=== PATIENT | male | born 1975 | race Caucasian/White ===

== ENCOUNTER → 2020-08-24 09:15 | Outpatient (REF) | payer OTHER, SELFPAY | LOC: HO.SL 09:15 | PROVIDERS: PCP Family Medicine; Visit Provider Family Medicine | DX: G47.52 REM sleep behavior disorder (principal) | CPT/HCPCS: 95806 ==

== ENCOUNTER → 2021-01-22 10:31 | Outpatient (BNVA) | payer OTHER, SELFPAY | PROVIDERS: PCP Family Medicine; Visit Provider Internal Medicine ==

== ENCOUNTER 2021-03-26 11:29 | Outpatient (REF) | payer OTHER, SELFPAY ==
[2021-03-26 13:58] LABS: MANUAL DIFF FLAG NO
[2021-03-26 14:13] LABS: Basophils Absolute Auto 0.1 X10*3/uL (0.0-0.2); Eosinophils Absolute Auto 0.3 X10*3/uL (0.0-0.4); Eosinophils Percent Auto 4.5 % (0-4); Hematocrit 42.2 % (42.0-52.0); Hemoglobin 14.9 g/dl (14.0-18.0); Imm Gran Abs Auto 0.03 X10*3/uL (0.00-0.03); Imm Gran Pct Auto 0.4 % (0.0-0.4); Lymphocytes Absolute Auto 2.5 X10*3/uL (1.2-4.9); Lymphocytes Percent Auto 34.8 % (20-40); Mean Corpuscular HGB Conc 35.3 g/dl (31.0-36.0); Mean Corpuscular Hemoglobin 31.7 pg (27.0-33.0); Mean Corpuscular Volume 89.8 fL (80.0-98.0); Mean Platelet Volume 11.2 fL (9.4-12.4); Monocytes Absolute Auto 0.5 X10*3/uL (0.1-1.2); Monocytes Percent Auto 7.1 % (2-11); Neutrophils Absolute Auto 3.7 x10*3/uL (2.0-8.3); Neutrophils Percent Auto 52.2 % (45-73); Platelet Count 326 X10*3/uL (160-400); Red Cell Distribution Width 11.3 % (11.0-16.0); White Blood Count 7.1 X10*3/uL (4.8-10.8)
[2021-03-26 14:21] LABS: Estimated Average Glucose 97 mg/dL
[2021-03-26 14:31] LABS: Alanine Aminotransferase 63 U/L (0-40); Albumin Level 4.3 g/dL (3.5-5.0); Alkaline Phosphatase 70 U/L (39-117); Anion Gap 12 (12-20); Aspartate Amino Transferase 32 U/L (5-37); Bilirubin Total 0.7 mg/dL (0.0-1.0); Blood Urea Nitrogen 12 mg/dL (9-16); Calcium 9.1 mg/dL (8.4-10.2); Carbon Dioxide 25 mmol/L (22-29); Chloride 107 mmol/L (96-108); Cholesterol 169 mg/dL; Estimated Glomerular Filt Rate > 60; Glucose Fasting 87 mg/dL (60-99); HDL Cholesterol 35 mg/dL; LDL Cholesterol Calculated 106 mg/dl; Potassium 4.3 mmol/L (3.3-5.1); Sodium 140 mmol/L (135-145); Total Protein 7.1 g/dL (6.5-8.0); Triglycerides 144 mg/dL
[2021-03-31 17:17] LABS: Testosterone, Free 33.8 pg/mL (35.0-155.0); Testosterone, Total 264 ng/dL (250-1100)
== END 2021-03-26 11:30 | disposition home or self-care (01) ==
LOC: HO.WFDLDS 11:29
PROVIDERS: Absent Provider Hospitalist; Visit Provider Family Medicine
DX: Z00.00 Encounter for general adult medical examination without abnormal findings (principal); R73.01 Impaired fasting glucose; R68.82 Decreased libido
CPT/HCPCS: 36415; 80053; 80061; 83036; 84402; 84403; 85025

== ENCOUNTER → 2021-04-10 09:52 | Outpatient (BNVA) | payer OTHER, SELFPAY | PROVIDERS: PCP Family Medicine; Visit Provider Internal Medicine ==

== ENCOUNTER 2021-07-19 10:52 | Outpatient (REF) | payer OTHER, SELFPAY ==
[2021-07-19 13:42] LABS: Alanine Aminotransferase 83 U/L (0-40); Albumin Level 4.4 g/dL (3.5-5.0); Alkaline Phosphatase 65 U/L (39-117); Aspartate Amino Transferase 42 U/L (5-37); Bilirubin Direct 0.3 mg/dL (0.0-0.5); Cholesterol 175 mg/dL; HDL Cholesterol 39 mg/dL; LDL Cholesterol Calculated 93 mg/dl; Total Protein 7.1 g/dL (6.5-8.0); Triglycerides 216 mg/dL
[2021-07-25 11:56] LABS: Testosterone, Free 29.2 pg/mL (35.0-155.0); Testosterone, Total 191 ng/dL (250-1100)
== END 2021-07-19 10:53 | disposition home or self-care (01) ==
LOC: HO.WFDLDS 10:52
PROVIDERS: Visit Provider Family Medicine
DX: Z00.00 Encounter for general adult medical examination without abnormal findings (principal); R68.82 Decreased libido; R79.89 Other specified abnormal findings of blood chemistry; E78.6 Lipoprotein deficiency; R74.01 Elevation of levels of liver transaminase levels
CPT/HCPCS: 36415; 80061; 80076; 84402; 84403

== ENCOUNTER → 2021-08-16 09:41 | Outpatient (BNVA) | payer OTHER, SELFPAY | PROVIDERS: PCP Family Medicine; Visit Provider Internal Medicine Endocrinology, Diabetes & Metabolism | DX: Z13.89 Encounter for screening for other disorder (principal) ==

== ENCOUNTER 2021-09-24 11:13 | Outpatient (REF) | payer OTHER, SELFPAY ==
[2021-09-24 13:55] LABS: Ferritin 479 ng/mL (20-250); Free T4 (Free Thyroxine) 0.96 ng/dL (0.71-1.85); Thyroid Stimulating Hormone 1.23 uIU/mL (0.32-4.0)
[2021-09-25 07:55] LABS: Follicle Stimulating Hormone 4.5 mIU/mL (1.6-8.0); Lutenizing Hormone 2.5 mIU/mL (1.5-9.3)
[2021-09-28 18:16] LABS: Testosterone, Free 64.2 pg/mL (35.0-155.0); Testosterone, Total 310 ng/dL (250-1100)
== END 2021-09-24 11:14 | disposition home or self-care (01) ==
LOC: HO.10HDL 11:13
PROVIDERS: Visit Provider Internal Medicine Endocrinology, Diabetes & Metabolism
DX: R79.89 Other specified abnormal findings of blood chemistry (principal)
CPT/HCPCS: 36415; 82728; 83001; 83002; 84402; 84403; 84439; 84443

== ENCOUNTER → 2021-09-25 10:35 | Outpatient (BNVA) | payer OTHER, SELFPAY | PROVIDERS: PCP Family Medicine; Visit Provider Internal Medicine | DX: G47.30 Sleep apnea, unspecified (principal); J30.9 Allergic rhinitis, unspecified; E66.01 Morbid (severe) obesity due to excess calories ==

== ENCOUNTER 2021-10-08 10:23 | Outpatient (REF) | payer OTHER, SELFPAY ==
--- NOTE | ~2021-10-08 | US_ITS ---
EXAMINATION: US ABDOMEN LIMITED WITH LIVER ELASTOGRAPHY CLINICAL INFORMATION: Increased liver function tests COMPARISON: None. TECHNIQUE: Real-time imaging of the abdominal viscera. Noninvasive ultrasound liver fibrosis assessment is performed using Chau ElastPQ point quantification shear wave elastography (2D-SWE) with a C5-2 MHz transducer. Multiple elastography samples are obtained. FINDINGS: PANCREAS: The visualized pancreatic head and body are normal in appearance. The remainder of the pancreas is obscured from visualization by the overlying bowel gas. LIVER: The liver is slightly enlarged. The liver contour is normal. Liver echotexture is increased. There are hypoechoic areas adjacent to the gallbladder, characteristic location of focal fatty sparing. No other focal lesion or intrahepatic biliary duct dilatation. The right lobe measures 19 cm in length. The left lobe measures 14 cm in length. Portal flow is normal/hepatopedal Shear wave liver elastography median stiffness is 2 m/s (reference: normal median stiffness is 1.3 m/s or less). IQR/median stiffness to assess sampling precision is 0.09 (reference: good quality data set is IQR/median stiffness of 0.15 or less). GALLBLADDER: Normal. The gallbladder is physiologically distended without evidence of stones, sludge, polyps, wall thickening or pericholecystic fluid. COMMON BILE DUCT: Normal in caliber measuring 0.3 cm in diameter. RIGHT KIDNEY: Normal. No hydronephrosis. No renal calculi or focal parenchymal lesions. The kidney measures 12 cm in maximum dimension. FREE FLUID: None. US/US abdomen barker w elastography IMPRESSION: 1. Impression: Enlarged echogenic liver suggestive of fatty infiltration. Limited visualization of the tail the pancreas. 2. Liver elastography: Adequate liver sampling. Increased liver stiffness suggestive of compensated advanced chronic liver disease but need further test for confirmation. REFERENCE: Society of Radiologists in Ultrasound Liver Stiffness Thresholds (2020): LIVER STIFFNESS THRESHOLDS: *Liver Stiffness equal or less than 1.3 m/s: High probability of being normal. *Liver Stiffness less than 1.7 m/s: In the absence of other known clinical signs, rules out compensated advanced chronic liver disease. *Liver Stiffness 1.7-2.1 m/s: *Liver Stiffness over 2.1 m/s: Rules in compensated advanced chronic liver disease. *Liver Stiffness over 2.4 m/s: Suggestive of clinically significant portal hypertension. QUALITY OF DATA SET: *IQR/Median value equal or less than 0.15 implies a quality data set. *IQR/Median value over 0.15 implies a poor quality data set. SIGNIFICANT CHANGE FROM PRIOR EXAM: Significant change if liver stiffness measurement is 10% or greater from prior exam. OTHER CONSIDERATIONS: The stage of liver fibrosis may be overestimated in the setting of acute hepatitis, liver inflammation, elevated liver function tests, hepatic vascular congestion, obstructive cholestasis, non-fasting state, and infiltrative diseases such as amyloidosis and lymphoma. In some patients with NAFLD, the liver stiffness thresholds for compensated advanced chronic liver disease may be lower. In causes other than viral hepatitis and NAFLD, liver stiffness thresholds are not well established.
== END 2021-10-08 10:24 | disposition home or self-care (01) ==
LOC: HO.US 10:23
PROVIDERS: Visit Provider Family Medicine
DX: R74.8 Abnormal levels of other serum enzymes (principal)
CPT/HCPCS: 76705; 76981

== ENCOUNTER → 2021-10-24 09:02 | Outpatient (BNVA) | payer OTHER, SELFPAY | PROVIDERS: PCP Family Medicine; Visit Provider Dietitian, Registered | DX: E66.01 Morbid (severe) obesity due to excess calories (principal); Z68.42 Body mass index [BMI] 45.0-49.9, adult | CPT/HCPCS: 97802 ==

== ENCOUNTER 2021-11-16 10:30 | Outpatient (REF) | payer OTHER, SELFPAY ==
[2021-11-16 14:01] LABS: Alanine Aminotransferase 72 U/L (0-40); Albumin Level 4.7 g/dL (3.5-5.0); Alkaline Phosphatase 63 U/L (39-117); Anion Gap 14 (12-20); Aspartate Amino Transferase 39 U/L (5-37); Bilirubin Total 0.9 mg/dL (0.0-1.0); Blood Urea Nitrogen 13 mg/dL (9-16); Calcium 9.3 mg/dL (8.4-10.2); Carbon Dioxide 27 mmol/L (22-29); Chloride 104 mmol/L (96-108); Cholesterol 164 mg/dL; Estimated Glomerular Filt Rate > 60; Glucose Fasting 103 mg/dL (60-99); HDL Cholesterol 33 mg/dL; LDL Cholesterol Calculated 93 mg/dl; Potassium 4.8 mmol/L (3.3-5.1); Sodium 140 mmol/L (135-145); Total Protein 7.6 g/dL (6.5-8.0); Triglycerides 193 mg/dL
== END 2021-11-16 10:31 | disposition home or self-care (01) ==
LOC: HO.WFDLDS 10:30
PROVIDERS: Visit Provider Family Medicine
DX: Z00.00 Encounter for general adult medical examination without abnormal findings (principal); E78.1 Pure hyperglyceridemia; R74.8 Abnormal levels of other serum enzymes
CPT/HCPCS: 36415; 80053; 80061

== ENCOUNTER → 2021-12-13 10:07 | Outpatient (BNVA) | payer OTHER, SELFPAY | PROVIDERS: PCP Family Medicine; Visit Provider Dietitian, Registered | DX: E66.01 Morbid (severe) obesity due to excess calories (principal); Z71.3 Dietary counseling and surveillance | CPT/HCPCS: 97803 ==

== ENCOUNTER 2022-01-25 13:31 | Outpatient (REF) | payer OTHER, SELFPAY ==
[2022-01-25 14:34] LABS: Gamma Glutamyl Transpeptidase 47 U/L (11-51)
[2022-01-25 14:54] LABS: Ferritin 271 ng/mL (20-250)
[2022-01-28 04:57] LABS: HBS Num1 2.13 mIU/mL (0-7.99); HBc Num1 0.09 S/CO (0.00-0.79); HBsAGNum1 0.18 S/CO (0.00-0.99); HIV AB/AG Nonreactive (Nonreactive); HIV Num 1 0.15 S/CO (0.00-0.99); Hepatitis B Core Antibody Nonreactive (Nonreactive); Hepatitis B Surface Antigen Negative (Negative); ~HepC Num1 0.15 S/CO (0.00-0.79); ~Hepatitis B Surface Antibody NONREACTIVE (Nonreactive); ~Hepatitis C Antibody Nonreactive (Nonreactive)
[2022-01-28 13:32] LABS: Anti Nuclear Antibody Screen NEGATIVE (NEGATIVE)
[2022-01-28 14:02] LABS: Alpha Fetoprotein 1.7 ng/mL (<6.1)
[2022-01-29 14:57] LABS: Mitochondrial Antibodies NEGATIVE (NEGATIVE)
[2022-01-30 04:38] LABS: Hepatitis A Antibody IgM 0.17 Index (0-0.79); ~Hepatitis A Antibody IgM Nonreactive (Nonreactive)
[2022-01-31 09:46] LABS: Smooth Muscle Antibody <20 U (<20)
== END 2022-01-25 13:32 | disposition home or self-care (01) ==
LOC: HO.LAB 13:31
PROVIDERS: PCP Family Medicine; Visit Provider Nurse Practitioner
DX: Z11.4 Encounter for screening for human immunodeficiency virus [HIV] (principal); R74.8 Abnormal levels of other serum enzymes
CPT/HCPCS: 36415; 82105; 82728; 82977; 86015; 86038; 86039; 86255; 86256; 86704; 86706; 86709; 86803; 87340; 87389

== ENCOUNTER → 2022-02-20 14:11 | Outpatient (BNVA) | payer OTHER, SELFPAY | PROVIDERS: PCP Family Medicine; Visit Provider Dietitian, Registered | DX: E66.01 Morbid (severe) obesity due to excess calories (principal); Z68.41 Body mass index [BMI] 40.0-44.9, adult | CPT/HCPCS: 97803 ==

== ENCOUNTER 2022-03-12 16:22 | Outpatient (REF) | payer OTHER, SELFPAY ==
[2022-03-13 12:46] LABS: Influenza A PCR NEGATIVE (Negative); Influenza B PCR NEGATIVE (Negative); Resp Syncy Virus RNA Qual PCR NEGATIVE (Negative); SARS COV2 PCR INHOUSE NEGATIVE (Negative)
== END 2022-03-12 16:23 | disposition home or self-care (01) ==
LOC: HO.LAB 16:22
PROVIDERS: Visit Provider Family Medicine
DX: Z20.822 Contact with and (suspected) exposure to COVID-19 (principal); R09.89 Other specified symptoms and signs involving the circulatory and respiratory systems
CPT/HCPCS: 0241U

== ENCOUNTER 2022-05-08 11:17 | Outpatient (REF) | payer OTHER, SELFPAY ==
[2022-05-08 14:33] LABS: Alanine Aminotransferase 35 U/L (0-40); Albumin Level 4.5 g/dL (3.5-5.0); Alkaline Phosphatase 60 U/L (39-117); Anion Gap 9 (12-20); Aspartate Amino Transferase 25 U/L (5-37); Blood Urea Nitrogen 21 mg/dL (9-16); Calcium 9.1 mg/dL (8.4-10.2); Carbon Dioxide 27 mmol/L (22-29); Chloride 107 mmol/L (96-108); Estimated Glomerular Filt Rate > 60; Glucose Random 86 mg/dL (60-115); Sodium 139 mmol/L (135-145); Total Protein 7.1 g/dL (6.5-8.0)
== END 2022-05-08 11:18 | disposition home or self-care (01) ==
LOC: HO.WFDLDS 11:17
PROVIDERS: Visit Provider Family Medicine
DX: R74.8 Abnormal levels of other serum enzymes (principal)
CPT/HCPCS: 36415; 80053

== ENCOUNTER → 2022-06-17 14:09 | Outpatient (BNVA) | payer OTHER, SELFPAY | PROVIDERS: PCP Family Medicine; Visit Provider Dietitian, Registered | DX: E66.01 Morbid (severe) obesity due to excess calories (principal); Z68.42 Body mass index [BMI] 45.0-49.9, adult | CPT/HCPCS: 97803 ==

== ENCOUNTER 2022-06-27 12:33 | Outpatient (REF) | payer OTHER, SELFPAY ==
[2022-06-27 15:34] LABS: Estimated Average Glucose 97 mg/dL
[2022-06-27 15:45] LABS: Anion Gap 14 (12-20); Blood Urea Nitrogen 17 mg/dL (9-16); Calcium 9.4 mg/dL (8.4-10.2); Carbon Dioxide 25 mmol/L (22-29); Chloride 106 mmol/L (96-108); Cholesterol 148 mg/dL; Estimated Glomerular Filt Rate > 60; Glucose Fasting 98 mg/dL (60-99); HDL Cholesterol 36 mg/dL; LDL Cholesterol Calculated 93 mg/dl; Potassium 4.6 mmol/L (3.3-5.1); Sodium 140 mmol/L (135-145); Triglycerides 98 mg/dL
[2022-06-27 16:03] LABS: Prostate Specific Antigen Scr 1.76 ng/mL (<0.05-4.0); TSH reflex Free T4 1.28 uIU/mL (0.32-4.0)
== END 2022-06-27 12:34 | disposition home or self-care (01) ==
LOC: HO.WFDLDS 12:33
PROVIDERS: Visit Provider Family Medicine
DX: Z00.00 Encounter for general adult medical examination without abnormal findings (principal); R73.01 Impaired fasting glucose; E78.6 Lipoprotein deficiency; Z12.5 Encounter for screening for malignant neoplasm of prostate
CPT/HCPCS: 36415; 80048; 80061; 83036; 84153; 84443

== ENCOUNTER → 2022-07-11 13:34 | Outpatient (BNVA) | payer OTHER, SELFPAY | PROVIDERS: PCP Family Medicine; Visit Provider Dietitian, Registered | DX: E66.9 Obesity, unspecified (principal) | CPT/HCPCS: 97803 ==

== ENCOUNTER 2022-08-23 11:32 | Outpatient (REF) | payer OTHER, SELFPAY ==
--- NOTE | ~2022-08-23 | US_ITS ---
EXAMINATION: US ABDOMEN LIMITED CLINICAL INFORMATION: Viral infection. HEDRICK (nonalcoholic steatosis). COMPARISON: 10/08/2021. TECHNIQUE: Real-time imaging of the right upper quadrant abdominal viscera. FINDINGS: PANCREAS: Normal. LIVER: The liver is normal in size. The liver contour is normal. There is diffuse increased liver parenchymal echogenicity, consistent with hepatic steatosis. No focal hepatic lesion. There is no intrahepatic biliary duct dilatation seen. GALLBLADDER: Normal. The gallbladder is physiologically distended without evidence of stones, sludge, polyps, wall thickening or pericholecystic fluid. COMMON BILE DUCT: Normal in caliber measuring 0.6 cm in diameter. RIGHT KIDNEY: Normal. No hydronephrosis. No renal calculi or focal parenchymal lesions. The kidney measures 12.0 cm in maximum dimension. FREE FLUID: None. US/US abdomen limited IMPRESSION: Fatty liver.
== END 2022-08-23 11:33 | disposition home or self-care (01) ==
LOC: HO.HMGCX 11:32
PROVIDERS: PCP Family Medicine; Visit Provider Nurse Practitioner
DX: B34.9 Viral infection, unspecified (principal)
CPT/HCPCS: 76705

== ENCOUNTER 2022-09-12 11:31 | Outpatient (REF) | payer OTHER, SELFPAY ==
[2022-09-12 14:06] LABS: Alanine Aminotransferase 24 U/L (0-40); Albumin Level 4.3 g/dL (3.5-5.0); Alkaline Phosphatase 69 U/L (39-117); Anion Gap 12 (12-20); Aspartate Amino Transferase 19 U/L (5-37); Bilirubin Total 1.1 mg/dL (0.0-1.0); Blood Urea Nitrogen 16 mg/dL (9-16); Carbon Dioxide 25 mmol/L (22-29); Chloride 107 mmol/L (96-108); Estimated Glomerular Filt Rate > 60; Glucose Random 92 mg/dL (60-115); Potassium 4.2 mmol/L (3.3-5.1); Sodium 140 mmol/L (135-145); Total Protein 7.1 g/dL (6.5-8.0)
[2022-09-18 06:57] LABS: Alpha Fetoprotein 1.7 ng/mL (<6.1)
== END 2022-09-12 11:32 | disposition home or self-care (01) ==
LOC: HO.HMGCLDS 11:31
PROVIDERS: PCP Family Medicine; Visit Provider Nurse Practitioner
DX: B34.9 Viral infection, unspecified (principal); K75.81 Nonalcoholic steatohepatitis (NASH)
CPT/HCPCS: 36415; 80053; 82105

== ENCOUNTER → 2022-09-24 11:00 | Outpatient (BNVA) | payer OTHER, SELFPAY | PROVIDERS: PCP Family Medicine; Visit Provider Internal Medicine ==

== ENCOUNTER → 2022-10-15 10:37 | Outpatient (BNVA) | payer OTHER, SELFPAY | PROVIDERS: PCP Family Medicine; Visit Provider Nurse Practitioner ==

== ENCOUNTER 2022-11-13 10:00 | Outpatient (RCR) | payer OTHER, SELFPAY ==
--- NOTE | 2022-09-25 12:33 | MHC.PT.EP ---
[facility] [place] Office [place] Office [place] Office [address] Bibiana Calderón [address] [phone] F: [phone] F: [phone] F: [phone] F: [phone] Physical Therapy Plan of Care Date of Evaluation: Date of Surgery: Diagnosis: This is a 47 yo male presenting to skilled PT with a script for L shoulder pain. Assessment: This is a 47 yo male presenting to skilled PT with a script for L shoulder pain. Patient has been having ongoing anterior GHJ shoulder pain now for a few months now (no injury noted). It feels like a guitar string vibration. Pain increases with reaching out to the side, waking up in the AM (stiffness). Some days are better than others. 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 He has been doing weight training and his shoulder feels better with exercise, follows an izzy and does not have an increase in pain. He does about 30 mins 3-4 times a week. Assessment reveals pain that ranges from up to a 5/10 at the worst. Patient demos decreased L shoulder ROM, strength of L scapular muscles and L RTC, s/s with ACJ involvement and TTP at joint line and impaired posture with forward head and rounded shoulders. Based on functional limitations, impaired QOL and pain tolerance patient is a good candidate for skilled PT 2x/wk for 4wks. Frequency and Duration: The patient will be seen 2x/wk for 4wks Short Term Goals: I in HEP in 2 wks Demo proper posture and muscle recruitment with strength training without cues from PT in 2wks Adapt work station appropriately to minimize compensation and impaired posture Senior Care Goals: in 4 wks: Improve pain to no more than 1/10 at the worst Improve SPADI by at least 10 points Improve scapular strength by at least 1 grade Demo equal and nonpainful ROM B Treatment Plan: Modalities to reduce pain, spasms and effusion. Manual therapy to restore motion and function. Therapeutic exercise to improve strength and flexibility. Neuromuscular re-education for posture and balance. Therapeutic activities to return to functional activities of daily living. Electronically signed by: Dai Manzanares PT Please sign and return to therapist. Thank you for your referral.
--- NOTE | 2022-11-21 09:54 | MHC.PT.DC ---
[facility] [place] Office [place] Office [place] Office [address] Calderón [address] [phone] F: [phone] F: [phone] F: [phone] F: [phone] Physical Therapy Discharge Report Diagnosis: This is a 47 yo male presenting to skilled PT with a script for L shoulder pain. Date of Surgery: Date of Evaluation: 09/25/22 Date of Discharge: 11/21/22 Treatments to Date: 7 Cancellations to Date: 0 No Shows to Date: Discharge Status: Achieved Goals Improved Function Independent with HEP Patient Elected to Stop Discharge Summary: Patient had 7 visits of PT, he has improved ROM, strength, posture and pain. He has a good HEP, understands how to manage this pain if it returns and importance of continuation of exercise. DC to HEP Electronically signed by: Dai Manzanares, PT Please sign and return to therapist. Thank you for your referral.
== END 2022-11-21 09:54 | disposition home or self-care (01) ==
LOC: HO.PTCHIC 10:00
PROVIDERS: PCP Family Medicine; Visit Provider Family Medicine
DX: M25.512 Pain in left shoulder (principal)
CPT/HCPCS: 97110; 97140; 97161

== ENCOUNTER 2022-11-20 10:16 | Outpatient (AMB) | payer OTHER, SELFPAY ==
--- NOTE | 2022-11-20 10:19 | MHC.AMNUTRGE ---
Intake VS Expanded 11/20/22 10:20 Height 5 ft 8 in Weight 285 lb 7.978 oz BMI 43.4 Intake Visit Reasons: Follow up Allergies cat dander [CATS] Allergy (Mild, Verified 10/15/22 10:49) SNEEZING, ITCHY EYES SEASONAL ALLERGIES Allergy (Mild, Uncoded 09/24/22 11:24) SNEEZING, RUNNY NOSE HPI Nutrition Presentation Details MNT f/u for morbid obesity Pt reports working on diet modifications, choosing lower fat options. Has a meal replacement most days of the week instead of skipping meals or choosing higher calorie meals. Following healthy plate method Physical activity: anaerobic exercises daily 15m in to 30 min Keeps hydrated by having 11-13 c of fluids per day Most Recent Diabetes Results: Cholesterol 148 mg/dL 06/27/22 HDL Cholesterol 36 mg/dL 06/27/22 Triglycerides 98 mg/dL 06/27/22 Creatinine 0.95 mg/dL (0.5-1.4) 09/12/22 Blood Urea Nitrogen 16 mg/dL (9-16) 09/12/22 Sodium 140 mmol/L (135-145) 09/12/22 Potassium 4.2 mmol/L (3.3-5.1) 09/12/22 Chloride 107 mmol/L (96-108) 09/12/22 Carbon Dioxide 25 mmol/L (22-29) 09/12/22 Calcium 9.0 mg/dL (8.4-10.2) 09/12/22 AST 19 U/L (5-37) 09/12/22 ALT 24 U/L (0-40) 09/12/22 Total Protein 7.1 g/dL (6.5-8.0) 09/12/22 Albumin 4.3 g/dL (3.5-5.0) 09/12/22 [facility] Medical History Allergic rhinitis Morbid obesity Surgical History No pertinent past surgical history Family History Father Cataract Mother Lymphedema Obesity Brother No problems noted. Brother No problems noted. Sister No problems noted. Maternal Grandmother Dementia Social History Housing: House Alcohol intake: current Alcohol intake frequency: a few times a month Patient Tobacco Use Status: Former Tobacco user Quit Date: 2008 e-Cigarette/Vaping Use: Never Used Second Hand Smoke Exposure: No service: No Current occupational status: employed Current occupational exposures/hazards: No Cognitive needs: No Hearing needs: No Vision needs: No Assessment & Plan Assessment & Plan (1) Morbid obesity: Comment: BMI 45.6 (10/2021), 47.2 (11/2021), 44.6 (02/2022), 45.8 (06/17/22), 44.2 (07/11/22), 43.4 (11/20/22) . Code(s): E66.01 - Morbid (severe) obesity due to excess calories Plan: Educate Pt on gradual reduction of calories by 500 -1000 per day from empty calorie foods Goal caloric /day : 4567-0400 ? Pt's set goal (Date: 10/24/21 ): reduce portion of starches in the evening to 1 1/2 cup serving at follow up (Date:12/13/21 ): met 50% at f/u 02/2022 met 100 % 06/17/22 - will resume goal, 11/20/22 meeting goal 100% 07/11/22 met 100%, Used wt : 141 kg, from 10/24/21 , 136 kg 06/17/22 , 132 kg (07/11/22) Est kcal goal: 2759-250 = 2259 (40% carb, 30% fat/prot) Est fluid needs: 3300 ml/d-3960 (25-30 ml/kg bw) Rec fiber: increase to 8-10 g per day and gradually increase to 35 g or as tolerated Rec Na: < 2000 mg /d Educate patient on: (R= Reviewed, V = verbalizes understanding N/R= Needs review N/A= not applicable) Food sources of carbohydrates and serving adequate serving sizes : R V Difference between complex carbohydrates and simple carbohydrates, role of fiber: R V Differences between fats (MUFA/PUFA/saturated fats, trans fats) and food sources of various fats: R , Food sources of sodium and salt and healthy modifications for heart health and kidney health: R, Vitamins and minerals: R V How to interpret food labels: R V Healthy Plate method concept: R V Physical activity: benefits and precaution: R V Patient Instructions: Continue working on reducing intake of saturated fats Continue following healthy plate method Continue physical activity, walking /biking as able goal 30 min to 1 hr 3 times/wk Coding Level of Care Code Nutr Indiv Subseq (01296) Diagnoses Morbid obesity E66.01 Time Spent (min) 20
[2022-11-20 10:20] VITALS: BMI 43.4
== END 2022-11-20 10:44 | disposition home or self-care (01) ==
PROVIDERS: PCP Family Medicine; Visit Provider Dietitian, Registered
DX: E66.01 Morbid (severe) obesity due to excess calories (principal)

== ENCOUNTER → 2022-11-20 10:16 | Outpatient (BNVA) | payer OTHER, SELFPAY | PROVIDERS: PCP Family Medicine; Visit Provider Dietitian, Registered | DX: E66.01 Morbid (severe) obesity due to excess calories (principal); Z68.41 Body mass index [BMI] 40.0-44.9, adult; Z71.3 Dietary counseling and surveillance | CPT/HCPCS: 97803 ==

== ENCOUNTER 2023-02-27 09:17 | Outpatient (REF) | payer OTHER, SELFPAY ==
--- NOTE | ~2023-02-27 | US_ITS ---
EXAMINATION: US ABDOMEN LIMITED WITH LIVER ELASTOGRAPHY CLINICAL INFORMATION: Nonalcoholic steatohepatitis. COMPARISON: None available. TECHNIQUE: Real-time imaging of the abdominal viscera. Noninvasive ultrasound liver fibrosis assessment is performed using Chau ElastPQ point quantification shear wave elastography (2D-SWE) with a C5-2 MHz transducer. Multiple elastography samples are obtained. FINDINGS: PANCREAS: Normal. The visualized pancreatic head and body are normal in appearance. The remainder of the pancreas is obscured from visualization by the overlying bowel gas. LIVER: There is mild hepatomegaly. The liver demonstrates normal contour and generally increased echogenicity, with pericholecystic sparing. No focal lesion or intrahepatic biliary duct dilatation. The right lobe measures 19.0 cm in length. The left lobe measures 11.7 cm in length. Portal flow is towards the liver (hepatopetal). Shear wave liver elastography median stiffness is 1.80 m/s (reference: normal median stiffness is 1.3 m/s or less). IQR/median stiffness to assess sampling precision is 0.17 (reference: good quality data set is IQR/median stiffness of 0.15 or less). GALLBLADDER: Normal. The gallbladder is physiologically distended without evidence of stones, sludge, polyps, wall thickening or pericholecystic fluid. COMMON BILE DUCT: Normal in caliber measuring 0.5 cm in diameter. RIGHT KIDNEY: Normal. No hydronephrosis. No renal calculi or focal parenchymal lesions. The kidney measures 10.6 cm in maximum dimension. FREE FLUID: None. US/US abdomen barker w elastography IMPRESSION: 1. There is generalized increase in hepatic echotexture, consistent with fatty infiltration or hepatocellular disease. Please correlate clinically. Characteristic pericholecystic sparing favors fatty infiltration. No focal hepatic mass or intrahepatic biliary dilatation is seen. 2. Liver elastography: Although measurements are suggestive of compensated advanced chronic liver disease, there is statistical variability of the sampling which decreases accuracy. REFERENCE: Society of Radiologists in Ultrasound Liver Stiffness Thresholds (2020): LIVER STIFFNESS THRESHOLDS: *Liver Stiffness equal or less than 1.3 m/s: High probability of being normal. *Liver Stiffness less than 1.7 m/s: In the absence of other known clinical signs, rules out compensated advanced chronic liver disease. *Liver Stiffness 1.7-2.1 m/s: Suggestive of compensated advanced chronic liver disease but need further test for confirmation. *Liver Stiffness over 2.1 m/s: Rules in compensated advanced chronic liver disease. *Liver Stiffness over 2.4 m/s: Suggestive of clinically significant portal hypertension. QUALITY OF DATA SET: *IQR/Median value equal or less than 0.15 implies a quality data set. *IQR/Median value over 0.15 implies a poor quality data set. SIGNIFICANT CHANGE FROM PRIOR EXAM: Significant change if liver stiffness measurement is 10% or greater from prior exam. OTHER CONSIDERATIONS: The stage of liver fibrosis may be overestimated in the setting of acute hepatitis, liver inflammation, elevated liver function tests, hepatic vascular congestion, obstructive cholestasis, non-fasting state, and infiltrative diseases such as amyloidosis and lymphoma. In some patients with NAFLD, the liver stiffness thresholds for compensated advanced chronic liver disease may be lower. In causes other than viral hepatitis and NAFLD, liver stiffness thresholds are not well established.
== END 2023-02-27 09:18 | disposition home or self-care (01) ==
LOC: HO.US 09:17
PROVIDERS: PCP Family Medicine; Visit Provider Nurse Practitioner
DX: K75.81 Nonalcoholic steatohepatitis (NASH) (principal)
CPT/HCPCS: 76705; 76981

== ENCOUNTER 2023-04-24 12:48 | Outpatient (REF) | payer OTHER, SELFPAY | END 2023-04-24 12:49 | disposition home or self-care (01) | LOC: HO.HMGCLDS 12:48 | PROVIDERS: PCP Family Medicine; Visit Provider Family Medicine | DX: Z00.00 Encounter for general adult medical examination without abnormal findings (principal); E78.6 Lipoprotein deficiency; R74.01 Elevation of levels of liver transaminase levels | CPT/HCPCS: 36415; 80053; 80061 ==

== ENCOUNTER 2023-04-25 14:07 | Outpatient (AMB) | payer OTHER, SELFPAY ==
[2023-04-25 14:20] VITALS: BP 136/76; PULSE 67; O2SAT 99; BMI 45.0
--- NOTE | 2023-04-25 14:20 | MHC.PC.OV ---
Vital Signs 04/25/23 14:20 Height 5 ft 8 in Weight 296 lb BMI 45.0 BP 136/76 Blood Pressure Location Lt brachial Position Sitting Pulse 67 Pulse Source Pulse Oximeter Pulse Oximetry (%) 99 Oxygen Delivery Method Room Air Intake Visit Reasons: Cholesterol Levels/Obesity F/U Intake Note: Patient is here for follow up cholesterol levels and obesity. Allergies cat dander [CATS] Allergy (Mild, Verified 04/25/23 14:22) SNEEZING, ITCHY EYES SEASONAL ALLERGIES Allergy (Mild, Uncoded 04/25/23 14:22) SNEEZING, RUNNY NOSE Tobacco use date assessed: 04/25/23 HPI Cholesterol Levels/Obesity F/U HPI Details 47 y/o male presents to f/u lipids and obesity. Labs were drawn 04/24/23. Reviewed labs with pt. Triglycerides 202. TC 161. LDL 84. HDL low at 37. He notes he might have not been fasting when he had gotten these labs drawn. Weight increased a bit - 285lbs to 296 lbs. ON LICENSE OF [facility] Medical History Allergic rhinitis Morbid obesity Surgical History No pertinent past surgical history Family History Father Cataract Mother Lymphedema Obesity Brother No problems noted. Brother No problems noted. Sister No problems noted. Maternal Grandmother Dementia Social History Housing: House Alcohol intake: current Alcohol intake frequency: a few times a month Patient Tobacco Use Status: Former Tobacco user Quit Date: 2008 e-Cigarette/Vaping Use: Never Used Second Hand Smoke Exposure: No service: No Current occupational status: employed Current occupational exposures/hazards: No Cognitive needs: No Hearing needs: No Vision needs: No Questionnaire PHQ-9 Over the last 2 weeks, how often have you been bothered by any of the following problems? 1. Little interest or pleasure in doing things: not at all 2. Feeling down, depressed, or hopeless: not at all 3. Trouble falling or staying asleep, or sleeping too much: not at all 4. Feeling tired or having little energy: not at all 5. Poor appetite or overeating: not at all 6. Feeling bad about yourself - or that you are a failure or have let yourself or your family down: not at all 7. Trouble concentrating on things, such as reading the newspaper or watching television: not at all 8. Moving or speaking so slowly that other people could have noticed. Or the opposite - being so fidgety or restless that you have been moving around a lot more than usual: not at all 9. Thoughts that you would be better off or of hurting yourself in some way: not at all Total score: 0 Source: Developed by Drs. Brendan Don, Shazia Zhu, Elgin Wright and colleagues, with an educational milton from [employer]. Thrive Questionnaire Date Thrive assessed: 05/13/22 AUDIT C Alcohol Use Questionnaire (AUDIT-C) 1. How often do you have a drink containing alcohol?: Monthly or less 2. How many drinks containing alcohol do you have on a typical day when you are drinking?: 1 or 2 3. How often do you have six or more drinks on one occasion?: Never Total Score: 1 YANELIS-7 AMB Questionnaire YANELIS-7 Date YANELIS - 7 assessed: 04/25/23 Feeling nervous, anxious, or on edge: 1 = Several days Not being able to stop or control worryin = Not at all Worrying too much about different things: 0 = Not at all Trouble relaxin = Not at all Being so restless that it is hard to sit still: 1 = Several days Becoming easily annoyed or irritable: 3 = Nearly every day Feeling afraid as if something awful might happen: 0 = Not at all Total YANELIS-7 score (0-4 normal; 5-9 mild; 10-14 moderate; 15-21 severe): 5 Source: Developed by Drs. Brendan Don, Shazia Zhu, Elgin Wright and colleagues, with an educational milton from [employer]. Review of Systems Const Denies chills, Denies fatigue, Denies fever(s), Denies headache(s) and Denies weakness ENT Denies dizziness and Denies headache(s) Card Denies dyspnea Resp Denies cough, Denies dyspnea, Denies wheezing and Denies other (shortness of breath) Musc Denies numbness and Denies tingling Neuro Denies dizziness, Denies headache(s), Denies numbness, Denies tingling and Denies weakness Psych Denies anxiety and Denies depression Endo Denies fatigue Aller/Immun Denies wheezing Physical exam (Primary Care) Vital Signs: Last Vital Signs Pulse 67 04/25/23 14:20 BP 136/76 04/25/23 14:20 Pulse Ox 99 04/25/23 14:20 Oxygen Delivery Method Room Air 04/25/23 14:20 BMI result Body Mass Index 45.0 Tobacco/Smoking Status: Tobacco use Status Tobacco use date assessed 04/25/23 04/25/23 14:26 Patient Tobacco Use Status Former Tobacco user 04/25/23 14:26 e-Cigarette/Vaping Use Never Used 04/25/23 14:26 PHQ-9: PHQ-9 Score PHQ-9: Total score 0 04/25/23 14:34 Thrive Assessment: Date of Thrive Assessment Date Thrive assessed 05/13/22 04/25/23 14:26 Const General: well developed; No acute distress Nutritional Appearance: obese morbidly obese Orientation/consciousness: patient oriented x3 HENMT Head: Yes normocephalic and Yes atraumatic Eyes General: appearance normal, both eyes and all related structures Pupils: Equal, round and reactive pupils present EOM: EOMs intact bilaterally Resp Effort & Inspection: normal respiratory effort Auscultation: clear to auscultation bilaterally Cardio Rate: regular rate Rhythm: regular rhythm Heart sounds: S1 normal heart sound present, S2 normal heart sound present, no gallops, no murmurs and no rubs Neuro General: patient oriented x3 and gait normal Cranial nerves: Yes Equal, round and reactive pupils present Psych Affect: normal affect Assessment and Plan Assessment & Plan (1) High triglycerides: Code(s): E78.1 - Pure hyperglyceridemia Plan: Triglycerides?mildly?elevated?but?patient?notes?that?he?was?not?properly?fasting. Triglycerides?were?okay?at?last?check?in?June He?said?he?has?resumed?efforts?to?work?at?diet?and?exercise?and?weight?loss.??I?encouraged?this (2) Obesity, Class III, BMI 40-49.9 (morbid obesity): Code(s): E66.01 - Morbid (severe) obesity due to excess calories Plan: As?above,?encouraged?ongoing?weight?loss (3) Low HDL (under 40): Code(s): E78.6 - Lipoprotein deficiency Plan: HDL?has?been?mildly?low He?had?resumed?exercising?and?I?encouraged?he?continue?this. Orders: Orders Prostate Specific Antigen Scr Today Z12.5 - Encounter for screening for malignant neoplasm of prostate Lipid Panel Today Z00.00 - Encounter for general adult medical examination without abnormal findings UA and rflx microscopic Today Z00.00 - Encounter for general adult medical examination without abnormal findings Microalbumin, Random (w Creat) Today I10 - Essential (primary) hypertension Comprehensive [place]. Panel Fast Today Z00.00 - Encounter for general adult medical examination without abnormal findings TSH reflex Free T4 Today Z00.00 - Encounter for general adult medical examination without abnormal findings Coding Level of Care Code Est Pt Level 3 (57535) Diagnoses High triglycerides E78.1 Obesity, Class III, BMI 40-49.9 (morbid obesity) E66.01 Low HDL (under 40) E78.6
== END 2023-04-25 15:03 | disposition home or self-care (01) ==
PROVIDERS: PCP Family Medicine; Visit Provider Family Medicine
DX: E78.1 Pure hyperglyceridemia (principal); E66.01 Morbid (severe) obesity due to excess calories; E78.6 Lipoprotein deficiency; Z68.42 Body mass index [BMI] 45.0-49.9, adult
CPT/HCPCS: 99213

== ENCOUNTER 2023-05-21 10:33 | Outpatient (AMB) | payer OTHER, SELFPAY ==
[2023-05-21 10:39] VITALS: BMI 44.6
--- NOTE | 2023-05-21 10:39 | MHC.AMNUTRGE ---
Intake VS Expanded 05/21/23 10:39 Height 5 ft 8 in Weight 293 lb 6.964 oz BMI 44.6 Intake Visit Reasons: Obesity/CONFIRMED Allergies cat dander [CATS] Allergy (Mild, Verified 04/25/23 14:22) SNEEZING, ITCHY EYES SEASONAL ALLERGIES Allergy (Mild, Uncoded 04/25/23 14:22) SNEEZING, RUNNY NOSE HPI Nutrition Presentation Details Pt presents for MNT f/u for morbid obesity Pt reports continuing to work on diet modifications Had stopped exercises for a couple of months related to fam dealth but resuming physical activity this past week 5 days a week - exercise izzy , 20-30 minutes Has included a daily probiotic Has hule shakes as meal replacement once a day Choosing higher fiber , vegetable, also has Metamucil once a day , reports doing well with regular bowel movements Reports consuming close to 80 oz of fluids per day Most Recent Diabetes Results: Cholesterol 161 mg/dL (<200) 04/24/23 HDL Cholesterol 37 mg/dL (>40) L 04/24/23 Triglycerides 202 mg/dL (<150) H 04/24/23 Creatinine 1.07 mg/dL (0.5-1.4) 04/24/23 Blood Urea Nitrogen 20 mg/dL (9-16) H 04/24/23 Sodium 139 mmol/L (135-145) 04/24/23 Potassium 4.0 mmol/L (3.3-5.1) 04/24/23 Chloride 103 mmol/L (96-108) 04/24/23 Carbon Dioxide 25 mmol/L (22-29) 04/24/23 Calcium 9.1 mg/dL (8.4-10.2) 04/24/23 AST 23 U/L (5-37) 04/24/23 ALT 29 U/L (0-40) 04/24/23 Total Protein 7.6 g/dL (6.5-8.0) 04/24/23 Albumin 4.5 g/dL (3.5-5.0) 04/24/23 [facility] Medical History Allergic rhinitis Morbid obesity Surgical History No pertinent past surgical history Family History Father Cataract Mother Lymphedema Obesity Brother No problems noted. Brother No problems noted. Sister No problems noted. Maternal Grandmother Dementia Social History Housing: House Alcohol intake: current Alcohol intake frequency: a few times a month Patient Tobacco Use Status: Former Tobacco user Quit Date: 2008 e-Cigarette/Vaping Use: Never Used Second Hand Smoke Exposure: No service: No Current occupational status: employed Current occupational exposures/hazards: No Cognitive needs: No Hearing needs: No Vision needs: No Assessment & Plan Assessment & Plan (1) Morbid obesity: Comment: BMI 45.6 (10/2021), 47.2 (11/2021), 44.6 (02/2022), 45.8 (06/17/22), 44.2 (07/11/22), 43.4 (11/20/22), 44.6 (04/2023) . Code(s): E66.01 - Morbid (severe) obesity due to excess calories Plan: Educate Pt on gradual reduction of calories by 500 -1000 per day from empty calorie foods Goal caloric /day : 0547-0870 ? Pt's set goal (Date: 10/24/21 ): reduce portion of starches in the evening to 1 1/2 cup serving at follow up (Date:12/13/21 ): met 50% at f/u 02/2022 met 100 % 06/17/22 - will resume goal, 11/20/22 meeting goal 100% 07/11/22 met 100%, Used wt : 141 kg, from 10/24/21 , 136 kg 06/17/22 , 132 kg (07/11/22), 133 kg (04/2023) Est kcal goal: 2759-250 = 2259 (40% carb, 30% fat/prot) Est fluid needs: 3300 ml/d-3960 (25-30 ml/kg bw) Rec fiber: increase to 8-10 g per day and gradually increase to 35 g or as tolerated Rec Na: < 2000 mg /d Educate patient on: (R= Reviewed, V = verbalizes understanding N/R= Needs review N/A= not applicable) Food sources of carbohydrates and serving adequate serving sizes : R V Difference between complex carbohydrates and simple carbohydrates, role of fiber: R V Differences between fats (MUFA/PUFA/saturated fats, trans fats) and food sources of various fats: R , Food sources of sodium and salt and healthy modifications for heart health and kidney health: R, Vitamins and minerals: R V How to interpret food labels: R V Healthy Plate method concept: R V Physical activity: benefits and precaution: R V Patient Instructions: Continue working on reducing caffeine Continue working on meal planning following healthy plate method Engage in physical activity 20 -30 minutes walks daily Coding Level of Care Code Nutr Indiv Subseq (75357) Diagnoses Morbid obesity E66.01 Time Spent (min) 20
== END 2023-05-21 11:29 | disposition home or self-care (01) ==
PROVIDERS: PCP Family Medicine; Visit Provider Dietitian, Registered
DX: E66.01 Morbid (severe) obesity due to excess calories (principal)

== ENCOUNTER → 2023-05-21 10:33 | Outpatient (BNVA) | payer OTHER, SELFPAY | PROVIDERS: PCP Family Medicine; Visit Provider Dietitian, Registered | DX: E66.01 Morbid (severe) obesity due to excess calories (principal); Z68.41 Body mass index [BMI] 40.0-44.9, adult; Z71.3 Dietary counseling and surveillance | CPT/HCPCS: 97803 ==

== ENCOUNTER 2023-06-03 11:05 | Outpatient (AMB) | payer OTHER, SELFPAY ==
[2023-06-03 11:17] VITALS: BP 120/82; PULSE 84; O2SAT 96; BMI 44.6
--- NOTE | 2023-06-03 11:17 | A.OFFVIS_ITS ---
Intake Vital Signs 06/03/23 11:17 Height 5 ft 8 in Weight 293 lb 3.437 oz BMI 44.6 BP 120/82 Blood Pressure Location Lt brachial Position Sitting Pulse 84 Pulse Source Pulse Oximeter Pulse Oximetry (%) 96 Oxygen Delivery Method Room Air Intake Visit Reasons: Obstructive sleep apnea Intake Note: pt is here for follow up of АЛЕКСАНДР and he did loose his mom in the fall, and moved to a new place, and some stress related insomnia. Alignment Mechanic Required: No Allergies cat dander [CATS] Allergy (Mild, Verified 06/03/23 11:46) SNEEZING, ITCHY EYES SEASONAL ALLERGIES Allergy (Mild, Uncoded 06/03/23 11:46) SNEEZING, RUNNY NOSE Medication List - Last Reconciled 06/03/23 by Barrett Rangel MD CPAP (CPAP Machine/Device) DX: G47.30. Use daily As directed; Auto CPAP 6-16 cm H2O. Duration: 999days/Lifetime. Disp#1 fluticasone propionate 50 mcg/actuation (Flonase Allergy Relief) 1 spray intranasal BID PRN vltxonws-wco-rwxyx-vit K-lycop 400-20-370 mcg (Men's 50 Plus Multivitamin) 1 tab PO DAILY oxymetazoline 0.05% (Afrin (oxymetazoline)) 2 sprays intranasal Q12H PRN Saccharomyces boulardii (Daily Probiotic (S. 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 HE HAS BEEN USING HIS CPAP REGULARLY AND SLEEPS GOOD. DENIES DAYTIME SLEEPINESS. HE HAS NO ISSUES WITH THE CPAP MASK OR THE DEVICE. HE HAS INTERMITTENT NASAL CONGESTION WHICH IS CONTROLLED WITH THE ALLERGY MEDS. WEIGHT IS STAYING STABLE, HE HAS SEEN THE MAINTAINER OPERATOR A FEW TIMES, TRYING TO CONTROL HIS. 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 AT PRESENT HE IS SAD BECAUSE HE LOST HIS MOTHER A FEW MONTHS AGO, DUE TO KIDNEY FAILURE. [facility] Medical History Allergic rhinitis Morbid obesity Surgical History No pertinent past surgical history Family History Father Cataract Mother Lymphedema Obesity Brother No problems noted. Brother No problems noted. Sister No problems noted. Maternal Grandmother Dementia Social History Housing: House Alcohol intake: current Alcohol intake frequency: a few times a month Patient Tobacco Use Status: Former Tobacco user Quit Date: 2008 e-Cigarette/Vaping Use: Never Used Second Hand Smoke Exposure: No service: No Current occupational status: employed Current occupational exposures/hazards: No Cognitive needs: No Hearing needs: No Vision needs: No Review of Systems Const All systems reviewed & are unremarkable except as noted in HPI and below Eyes Reports no additional complaints ENT Reports no additional complaints and Reports nasal congestion (ALMOST EVERY NIGHT) Card Reports no additional complaints Resp Reports no additional complaints GI Reports no additional complaints Reports no additional complaints Musc Reports no additional complaints Skin/Breast Reports system reviewed and no additional complaints, except as documented Neuro Reports no additional complaints Psych Reports anxiety (Controlled with med) and Reports depression (Controlled with med) Endo Reports no additional complaints Physical Exam Vital Signs: Last Vital Signs Pulse 84 06/03/23 11:17 BP 120/82 06/03/23 11:17 Pulse Ox 96 06/03/23 11:17 Oxygen Delivery Method Room Air 06/03/23 11:17 BMI result Body Mass Index 44.6 Const General: comfortable, no acute distress, alert and awake Orientation/consciousness: patient oriented x3 HEENT Head: Yes normal to inspection General nose exam: No nasal polyps present, No nasal discharge present and Other nasal findings present (Has moderate nasal congestion) Face and sinus: Yes sinuses nontender Mouth: oropharynx normal Throat: Yes posterior oropharynx normal Eyes General: appearance normal, both eyes and all related structures Neck Neck: Yes normal visual inspection, Yes no lymphadenopathy, Yes trachea midline and Yes no JVD Thyroid: Thyroid normal Chest Chest palpation & inspection: normal inspection of the chest, normal palpation of entire chest wall and no tenderness Resp Effort & Inspection: normal respiratory effort Auscultation: clear to auscultation bilaterally Percussion: percussion normal Cardio Palpation: normal PMI Rate: regular rate Rhythm: regular rhythm Heart sounds: no gallops and no murmurs Peripheral pulses: Peripheral pulses 2+ throughout GI Palpation (GI): Soft to palpation, nontender, No hepatosplenomegaly present, no masses and Other GI palpation findings present (Abdomen is grossly obese and protuberant) Auscultation: normal bowel sounds Back/Spine/Pelvis Thoracic/Lumbar Spine: thoracic and lumbar spine normal to inspection Skin General skin exam: no rashes or lesions noted Neuro General: patient oriented x3 and no focal motor deficits Cranial nerves: Yes CN's II-XII intact bilaterally Extrem General: Yes normal to inspection, Yes no clubbing, cyanosis or edema and Yes no calf tenderness Psych Appearance: grossly normal and well kempt Speech and movement: Normal speech and movement present Results Reviewed Results Reviewed: COMPLIANCE REPORT FOR THE LAST 30 NIGHTS IS REVIEWED HE HAS USED 30/30 NIGHTS, 100%. AVERAGE USE PER NIGHT. 5 HOURS 55 MINUTES THERE IS NO AIR LEAK. RESIDUAL AHI 0.1 Assessment & Plan Assessment & Plan (1) Morbid obesity: Comment: BMI 45.6 (10/2021), 47.2 (11/2021), 44.6 (02/2022), 45.8 (06/17/22), 44.2 (07/11/22), 43.4 (11/20/22), 44.6 (06/02/2023 ) . Code(s): E66.01 - Morbid (severe) obesity due to excess calories Plan: DISCUSSED WITH HIM ABOUT WEIGHT REDUCTION. HE IS TRYING HIS BEST. HE IS ENCOURAGED TO KEEP HIS APPOINTMENT WITH THE MAINTAINER OPERATOR . (2) Sleep apnea: Comment: KNOWN CASE OF OBSTRUCTIVE SLEEP APNEA. HE IS using CPAP therapy very regularly, except for some nights when he forgets to the mask on. Compliance is good. Code(s): G47.30 - Sleep apnea, unspecified Plan: Commended for good compliance. He will continue to use it every night and at least for 5 hours per night. (3) Allergic rhinitis: Comment: Has mild intermittent nasal congestion secondary to allergic rhinitis, Code(s): J30.9 - Allergic rhinitis, unspecified Plan: [place] : Flonase-52 spray each nostril daily Loratadine 10 mg p.r.n. Coding Level of Care Code Est Pt Level 3 (29613) Diagnoses Morbid obesity E66.01 Sleep apnea G47.30 Allergic rhinitis J30.9
== END 2023-06-03 11:45 | disposition home or self-care (01) ==
PROVIDERS: PCP Family Medicine; Visit Provider Internal Medicine
DX: E66.01 Morbid (severe) obesity due to excess calories (principal); G47.30 Sleep apnea, unspecified; J30.9 Allergic rhinitis, unspecified
CPT/HCPCS: 99213

== ENCOUNTER → 2023-06-03 11:05 | Outpatient (BNVA) | payer OTHER, SELFPAY | PROVIDERS: PCP Family Medicine; Visit Provider Internal Medicine ==

== ENCOUNTER 2023-06-18 11:13 | Outpatient (AMB) | payer OTHER, SELFPAY ==
--- NOTE | 2023-06-18 11:22 | A.OFFVIS_ITS ---
Intake Vital Signs 06/18/23 11:34 Height 5 ft 8 in Weight 295 lb 6.711 oz BMI 44.9 BP 152/64 H Blood Pressure Location Rt brachial Position Sitting Pulse 76 Intake Visit Reasons: Follow up Morbid obesity Intake Note: Patient returns in follow up of US and labs. CC: Patient feeling pretty good GI related. Pt states he gain a lot of weight back because he was taking care of his mother who on November. Pt having trouble sleeping and taking Hydroxizyne he had at home. Filler Feeder Required: No Accompanied by: Self / Same As Patient Allergies cat dander [CATS] Allergy (Mild, Verified 06/18/23 11:35) SNEEZING, ITCHY EYES SEASONAL ALLERGIES Allergy (Mild, Uncoded 06/03/23 11:46) SNEEZING, RUNNY NOSE HPI Follow up Morbid obesity HPI Details Assessment & Plan (1) HEDRICK (nonalcoholic steatohepatitis): Comment: Baseline Laboratory Tests 03/26/21 Plt Count 326 Estimated GFR > 60 Total Bilirubin 0.9 AST 39 H ALT 72 H Alkaline Phosphatase 63 01/25/22 Ferritin 271 H GGT 47 Alpha Fetoprotein 1.7 ANGELIA Screen NEGATIVE Anti-Mitochondrial Ab NEGATIVE Anti-Smooth Muscle Ab <20 Hepatitis A IgM Ab Nonreactive Hep Bs Antigen Negative Hep Bs Antibody NONREACTIVE Hep B Core Total Ab Nonreactive Hepatitis C Ab (EIA) Nonreactive HIV 1&2 Ab/P24 Ag 4thGn Nonreactive Ultrasound of the abdomen with elastography shows F-3 THE PATIENT IS MORBIDLY OBESE ULTRASOUND OF THE ABDOMEN WITH ELASTOGRAPHY 09/2021 (F1-F2) CURRENT LABS 09/12/2304/25/23 11:3511:35 Total Bilirubin 1.1 H AST 19 ALT 24 Alkaline Phosphatase 69 Alpha Fetoprotein 1.7 ULTRASOUND OF THE ABDOMEN 08/27/22 IMPRESSION: Fatty liver Code(s): K75.81 - Nonalcoholic steatohepatitis (HEDRICK) Plan: HE has lost a great deal of weight using a phone izzy and intentional dieting. This really shows in his liver functions as they have normalized. He is also exercising. 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 He is also using a meal replacement called hule. He is also planning and eating smaller more frequent meals so that he is never super hungry. ROV 6 mos and consider repeat US with elastography. (Already ordered as he is good with advanced compliance). (2) Morbid obesity: Comment: BMI 45.6 (10/2021), 47.2 (11/2021), 44.6 (02/2022), 45.8 (06/17/22), 44.2 (07/11/22) today is 43.8 Brought to his attention that he needs to cut down the calories intake and do's extra exercise on a daily basis. Code(s): E66.01 - Morbid (severe) obesity due to excess calories Orders: Orders Alpha Fetoprotein 03/12/23 K75.81 - Nonalcoho lic steatohepatiti s (HEDRICK) Liver Panel 03/12/23 K75.81 - Nonalcoho lic steatohepatiti s (HEDRICK) US abdomen barker w e lastography 03/12/23 K75.81 - Nonalcoho lic steatohepatiti s (HEDRICK) LABS: Laboratory Tests 09/12/22 04/24/23 11:35 12:55 Total Bilirubin 0.7 AST 23 ALT 29 Alkaline Phosphata se 71 Alpha Fetoprotein 1.7 ULTRASOUND OF THE ABDOMEN WITH ELASTOGRAPHY 03/03/23 (F2) FINDINGS: PANCREAS: Normal. The visualized pancreatic head and body are normal in appearance. The remainder of the pancreas is obscured from visualization by the overlying bowel gas. LIVER: There is mild hepatomegaly. The liver demonstrates normal contour and generally increased echogenicity, with pericholecystic sparing. No focal lesion or intrahepatic biliary duct dilatation. The right lobe measures 19.0 cm in length. The left lobe measures 11.7 cm in length. Portal flow is towards the liver (hepatopetal). Shear wave liver elastography median stiffness is 1.80 m/s (reference: normal median stiffness is 1.3 m/s or less). IQR/median stiffness to assess sampling precision is 0.17 (reference: good quality data set is IQR/median stiffness of 0.15 or less). GALLBLADDER: Normal. The gallbladder is physiologically distended without evidence of stones, sludge, polyps, wall thickening or pericholecystic fluid. COMMON BILE DUCT: Normal in caliber measuring 0.5 cm in diameter. RIGHT KIDNEY: Normal. No hydronephrosis. No renal calculi or focal parenchymal lesions. The kidney measures 10.6 cm in maximum dimension. FREE FLUID: None. US/US abdomen barker w elastography IMPRESSION: 1. There is generalized increase in hepa tic echotexture, consistent with fatty infiltration or hepatocellular disease. Please correlate clinically. Characteristic pericholecystic sparing favors fatty infiltration. No focal hepatic mass or intrahepatic biliary dilatation is seen. 2. Liver elastography: Although measure ments are suggestive of compensated advanced chronic liver disease, there is statistical variability of the sampling which decreases accuracy. CORRESPONDENCE On 04/02/23 @ 10:00 Addie Anderson Wrote To Palacios,July FYI- PT has f/u next 04/09, US was done but he hasn't have the labs done. I called PT and LVM reminding him to have labs done before f/u izzy TODAY'S VISIT He was busy with his mother who become ill with renal failure and she . This put his diet off somewhat, which would be expected - he also could not exercise. We review the labs and his liver hads improved since we started. LIver stage seem stable at F1-F2. ROV 6 mos [facility] Medical History Allergic rhinitis Morbid obesity Surgical History No pertinent past surgical history Family History Father Cataract Mother Lymphedema Obesity Brother No problems noted. Brother No problems noted. Sister No problems noted. Maternal Grandmother Dementia Social History Housing: House Alcohol intake: current Alcohol intake frequency: a few times a month Patient Tobacco Use Status: Former Tobacco user Quit Date: 2008 e-Cigarette/Vaping Use: Never Used Second Hand Smoke Exposure: No service: No Current occupational status: employed Current occupational exposures/hazards: No Cognitive needs: No Hearing needs: No Vision needs: No Review of Systems Const Denies fatigue, Denies fever(s), Denies night sweats, Denies poor appetite, Reports weight gain and Denies weight loss ENT Reports Normal hearing present, Denies dental pain, Denies dysphagia, Denies hearing loss, Denies mouth pain, Denies odynophagia, Denies throat swelling, Denies tongue swelling and Reports other (Dentition adequate) Card Reports no additional complaints Resp Reports no additional complaints GI Details: Denies abdominal pain, Denies melena, Denies bloating, Denies hematochezia, Denies constipation, Denies GI cramping, Denies dysphagia, Denies excessive flatus, Denies early satiety, Denies heartburn, Denies diarrhea, Denies nausea, Denies odynophagia, Denies vomiting and Denies hematemesis Skin/Breast Denies pruritus, Denies lesions, Denies rash and Denies jaundice Neuro Reports Normal hearing present and Denies Abnormal speech present Psych Reports anxiety Endo Denies fatigue Aller/Immun Denies throat swelling and Denies tongue swelling Physical Exam Vital Signs: Last Vital Signs Pulse 76 06/18/23 11:34 BP 152/64 H 06/18/23 11:34 BMI result Body Mass Index 44.9 Const General: cooperative, no acute distress, well developed and well groomed Nutritional Appearance: well nourished and obese Orientation/consciousness: oriented to person, oriented to place and oriented to time Limitations: No language barrier HEENT Head: Yes normocephalic and Yes atraumatic Eyes General: appearance normal, both eyes and all related structures Pupils: Equal, round and reactive pupils present Neck Neck: Yes normal visual inspection and Yes no lymphadenopathy Thyroid: Thyroid normal Resp Effort & Inspection: normal respiratory effort and able to speak in complete sentences Auscultation: clear to auscultation bilaterally Cardio Rate: regular rate Rhythm: regular rhythm Heart sounds: Normal, physiologic split S2 sound present Peripheral pulses: radial pulses present and posterior tibial pulses present GI Inspection: No distended, Yes Abdominal panniculus present and Yes obesity Palpation (GI): Soft to palpation, nontender, no guarding, not rigid and No hepatosplenomegaly present Percussion: Yes normal to percussion Auscultation: normal bowel sounds Rectal Exam - Male: Yes deferred Skin General skin exam: no rashes or lesions noted, turgor normal, skin not dry, no jaundice, No spider nevi and no striae Rashes: no rashes Nails: normal Neuro General: oriented to person, oriented to place and oriented to time Cranial nerves: Yes Equal, round and reactive pupils present and Yes Normal he aring present Speech: No Abnormal speech present Extrem General: Yes normal to inspection, No clubbing, No cyanosis and No edema Psych Appearance: grossly normal and well kempt Mental Status: mental status grossly normal Speech and movement: Normal speech and movement present Affect: normal affect Attitude: cooperative Thought process: Normal thought process present and not confabulating Thought content: Normal thought content present Insight: Fair insight present (Psych) Judgement: Fair judgement present (Psych) Assessment & Plan Assessment & Plan (1) HEDRICK (nonalcoholic steatohepatitis): Comment: Baseline Laboratory Tests 03/26/21 Plt Count 326 Estimated GFR > 60 Total Bilirubin 0.9 AST 39 H ALT 72 H Alkaline Phosphatase 63 01/25/22 Ferritin 271 H GGT 47 Alpha Fetoprotein 1.7 ANGELIA Screen NEGATIVE Anti-Mitochondrial Ab NEGATIVE Anti-Smooth Muscle Ab <20 Hepatitis A IgM Ab Nonreactive Hep Bs Antigen Negative Hep Bs Antibody NONREACTIVE Hep B Core Total Ab Nonreactive Hepatitis C Ab (EIA) Nonreactive HIV 1&2 Ab/P24 Ag 4thGn Nonreactive Ultrasound of the abdomen with elastography shows F-3 THE PATIENT IS MORBIDLY OBESE ULTRASOUND OF THE ABDOMEN WITH ELASTOGRAPHY 09/2021 (F1-F2) CURRENT LABS 09/12/2304/25/23 11:3511:35 Total Bilirubin 1.1 H AST 19 ALT 24 Alkaline Phosphatase 69 Alpha Fetoprotein 1.7 ULTRASOUND OF THE ABDOMEN 08/27/22 IMPRESSION: Fatty liver Code(s): K75.81 - Nonalcoholic steatohepatitis (HEDRICK) (2) Morbid obesity: Comment: BMI 45.6 (10/2021), 47.2 (11/2021), 44.6 (02/2022), 45.8 (06/17/22), 44.2 (07/11/22), 43.4 (11/20/22), 44.6 (06/02/2023 ) . Code(s): E66.01 - Morbid (severe) obesity due to excess calories Plan He was busy with his mother who become ill with renal failure and she . This put his diet off somewhat, which would be expected - he also could not exercise. We review the labs and his liver hads improved since we started. LIver stage seem stable at F1-F2. ROV 6 mos Coding Level of Care Code Est Pt Level 3 (70384) Diagnoses HEDRICK (nonalcoholic steatohepatitis) K75.81 Morbid obesity E66.01
[2023-06-18 11:34] VITALS: BP 152/64; PULSE 76; BMI 44.9
== END 2023-06-18 13:03 | disposition home or self-care (01) ==
PROVIDERS: PCP Family Medicine; Visit Provider Nurse Practitioner
DX: K75.81 Nonalcoholic steatohepatitis (NASH) (principal); E66.01 Morbid (severe) obesity due to excess calories
CPT/HCPCS: 99213

== ENCOUNTER → 2023-06-18 11:13 | Outpatient (BNVA) | payer OTHER, SELFPAY | PROVIDERS: PCP Family Medicine; Visit Provider Nurse Practitioner ==

== ENCOUNTER 2023-07-25 11:24 | Outpatient (REF) | payer OTHER, SELFPAY ==
[2023-07-25 13:39] LABS: Alanine Aminotransferase 28 U/L (0-40); Albumin Level 4.5 g/dL (3.5-5.0); Alkaline Phosphatase 70 U/L (39-117); Anion Gap 11 (12-20); Aspartate Amino Transferase 21 U/L (5-37); Bilirubin Total 0.9 mg/dL (0.0-1.0); Blood Urea Nitrogen 17 mg/dL (9-16); Calcium 9.2 mg/dL (8.4-10.2); Carbon Dioxide 28 mmol/L (22-29); Chloride 105 mmol/L (96-108); Cholesterol 152 mg/dL (<200); Estimated Glomerular Filt Rate > 60; Glucose Fasting 91 mg/dL (60-99); HDL Cholesterol 36 mg/dL (>40); LDL Cholesterol Calculated 92 mg/dL (<100); Potassium 4.3 mmol/L (3.3-5.1); Sodium 140 mmol/L (135-145); Total Protein 7.7 g/dL (6.5-8.0); Triglycerides 124 mg/dL (<150)
[2023-07-25 13:42] LABS: Appearance Urine Clear; Color Urine Yellow; Glucose Urine UA Negative (Negative); Leukocyte Esterase Urine Negative (Negative); Nitrite Urine Negative (Negative); PH 5.5 (5.0-9.0); Specific Gravity - Urine >= 1.030 (1.005-1.025); UMIC TRIGGER UA YES; Urine Blood Trace (Negative); Urine Ketones Negative (Negative); Urine Protein Trace mg/dL (Neg-Trace)
[2023-07-25 13:49] LABS: Bacteria Urine None Seen (None Seen); Hyaline Casts Urine 0-2 /LPF (0-2); RBC Urine 0-2 /HPF (0-2); Squamous Epithelial Cell Urine 0-2 /HPF (0-2); WBC Urine 0-5 /HPF (0-5)
[2023-07-25 13:57] LABS: TSH reflex Free T4 1.44 uIU/mL (0.32-4.0)
[2023-07-25 14:22] LABS: Microalbum/Creatinine Ratio Ur 26.5 ug/mg cr (<30)
[2023-07-25 14:57] LABS: Prostate Specific Antigen Scr 1.61 ng/mL (<0.05-4.0)
== END 2023-07-25 11:25 | disposition home or self-care (01) ==
LOC: HO.LAB 11:24
PROVIDERS: PCP Family Medicine; Visit Provider Family Medicine
DX: Z00.00 Encounter for general adult medical examination without abnormal findings (principal); Z12.5 Encounter for screening for malignant neoplasm of prostate; I10 Essential (primary) hypertension
CPT/HCPCS: 36415; 80053; 80061; 81001; 81003; 82043; 82570; 84153; 84443

== ENCOUNTER 2023-07-30 14:12 | Outpatient (AMB) | payer OTHER, SELFPAY ==
--- NOTE | 2023-07-30 14:17 | MHC.PC.OV ---
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 Use daily As directed; Auto CPAP 6-16 cm H2O. Duration: 999days/Lifetime. Disp#1 fluticasone propionate 50 mcg/actuation (Flonase Allergy Relief) 1 spray intranasal BID PRN hydroxyzine HCl 50 mg PO BEDTIME tghuecvv-rla-sbert-vit K-lycop 400-20-370 mcg (Men's 50 Plus Multivitamin) 1 tab PO DAILY oxymetazoline 0.05% (Afrin (oxymetazoline)) 2 sprays intranasal Q12H PRN psyllium husk (Metamucil) 1 tbsp PO DAILY Saccharomyces boulardii (Daily Probiotic (S. boulardii)) 250 mg PO BID Tobacco use date assessed: 07/30/23 Dental Screening Dental Screen Date: 07/30/23 Did you have a dental visit in the last 12 months?: Yes Did you have a dental problem in the last 6 months where you did not have access to dental care?: No Was dental information given to patient?: Patient has dentist HPI CPE HPI Details 47 y/o male presents for a CPE with f/u labs and health maintenance. Labs were drawn 07/25/23. Reviewed labs with pt. Triglycerides 124. TC 152. LDL 92. HDL low at 36. Pt has complaints of a cyst of his skin on his L thigh. PFSH Medical History Allergic rhinitis Morbid obesity Surgical History No pertinent past surgical history Family History Father Cataract Mother Lymphedema Obesity Brother No problems noted. Brother No problems noted. Sister No problems noted. 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 Brendan Don, Shazia Zhu, Elgin Wright and colleagues, with an educational milton from [employer]. Review of Systems Const Denies chills, Denies fatigue, Denies fever(s), Denies headache(s) and Denies weakness Eyes Denies change in vision ENT Denies dizziness, Denies headache(s), Denies hearing loss, Denies nasal congestion, Denies sinus pain, Denies sinus pressure and Denies sore throat Card Denies chest pain, Denies lightheadedness, Denies dyspnea and Denies other (palpitations) Resp Denies cough, Denies dyspnea and Denies wheezing GI Denies abdominal pain, Denies melena, Denies hematochezia, Denies change in bowel habits, Denies dyspepsia and Denies nausea Denies hematuria and Denies dysuria Musc Denies abnormal gait, Denies myalgias, Denies arthralgias, Denies numbness and Denies tingling Skin/Breast Denies rash, Denies unusual bruising and Denies wounds Neuro Denies abnormal gait, Denies dizziness, Denies headache(s), Denies memory loss, Denies numbness, Denies Sensory deficit (Neuro), Denies tingling and Denies weakness Psych Denies anxiety, Denies depression and Denies memory loss Endo Denies cold intolerance, Denies fatigue, Denies heat intolerance, Denies polydipsia and Denies polyuria Román/Lymph Denies easy bleeding and Denies easy bruising Aller/Immun Denies wheezing Physical exam (Primary Care) Vital Signs: Last Vital Signs Temp 98 F 07/30/23 14:21 Pulse 74 07/30/23 14:21 Resp 16 07/30/23 14:21 BP 124/78 07/30/23 14:21 Pulse Ox 96 07/30/23 14:21 Oxygen Delivery Method Room Air 07/30/23 14:21 BMI result Body Mass Index 45.5 Tobacco/Smoking Status: Tobacco use Status Tobacco use date assessed 07/30/23 07/30/23 14:24 Patient Tobacco Use Status Former Tobacco user 07/30/23 14:24 e-Cigarette/Vaping Use Never Used 07/30/23 14:24 Thrive Assessment: Date of Thrive Assessment Date Thrive assessed 05/13/22 07/30/23 14:24 Const General: no acute distress, well developed, alert and awake Nutritional Appearance: well nourished and obese morbidly obese Orientation/consciousness: patient oriented x3 HENMT Head: Yes normocephalic and Yes atraumatic Ears: hearing grossly normal bilaterally and TM's normal bilaterally General nose exam: Normal external nose present and Normal nares present Mouth: Normal oral and palatal mucosa present and moist mucous membranes Teeth and gingiva: dentition normal Throat: Yes posterior oropharynx normal Eyes General: appearance normal, both eyes and all related structures Pupils: Equal, round and reactive pupils present and Pupil accommodation reflex normal EOM: EOMs intact bilaterally Neck Neck: Yes normal visual inspection, Yes no lymphadenopathy and Yes trachea midline Thyroid: Thyroid normal Carotids: no bruits Lymphatic: no lymphadenopathy noted Chest Chest palpation & inspection: normal inspection of the chest Resp Effort & Inspection: normal respiratory effort Auscultation: clear to auscultation bilaterally Cardio Rate: regular rate Rhythm: regular rhythm Heart sounds: S1 normal heart sound present, S2 normal heart sound present, no gallops, no murmurs and no rubs Bruits: no abdominal aortic bruits and no carotid bruits GI Palpation (GI): No Abdominal aortic bruit present, Soft to palpation, nontender, No hepatosplenomegaly present and No Rebound tenderness present Auscultation: normal bowel sounds General: Yes no CVA tenderness Back/Spine/Pelvis Back: no CVA tenderness Cervical Spine: cervical ROM normal and No Cervical spine tenderness Thoracic/Lumbar Spine: thoraco-lumbar ROM normal, No pain with thoraco-lumbar ROM, No thoracic spinal tenderness and No lumbar spinal tenderness Skin Other: Large cyst/lipoma of L thigh Lesions: no lesions Rashes: no rashes Trauma: no lacerations or abrasions Wounds: no wounds Nails: normal Neuro General: patient oriented x3 Cranial nerves: Yes Equal, round and reactive pupils present Cognition (Neuro): normal cognition Gait exam (Neuro): Normal gait present Motor exam (neuro): 5/5 motor strength present throughout Sensory Exam: No Sensory deficit (Neuro) Deep tendon reflexes (DTR's): Right patellar reflex intensity grade: 2+ and Left patellar reflex intensity grade: 2+ Extrem General: Yes normal to inspection and No edema Psych Appearance: grossly normal Affect: normal affect Attitude: cooperative Thought process: Normal thought process present Assessment and Plan Assessment & Plan (1) Annual physical exam: Code(s): Z00.00 - Encounter for general adult medical examination without abnormal findings Plan: 47-year-old?male?presents?for?complete?physical?exam Encouraged?healthy?diet?with?active?lifestyle?and?plenty?of?exercise (2) Low HDL (under 40): Code(s): E78.6 - Lipoprotein deficiency Plan: Encouraged?exercise (3) Allergic rhinitis: Comment: Has mild intermittent nasal congestion secondary to allergic rhinitis, Code(s): J30.9 - Allergic rhinitis, unspecified Plan: Continue?nasal?steroid Aim?away?from?nasal?septum Nasal?saline?throughout?the?day (4) Cyst of skin: Code(s): L72.9 - Follicular cyst of the skin and subcutaneous tissue, unspecified Plan: Large?cyst?or?lipoma?at?proximal?left?inner?thigh?which?gets?inflamed/irritated Referred?to?general?surgery (5) Bleeding nose: Code(s): R04.0 - Epistaxis Plan: As?above,?nasal?saline (6) Screening for colon cancer: Code(s): Z12.11 - Encounter for screening for malignant neoplasm of colon Plan: Referred?back?to?GI?for?colonoscopy (7) Screening for prostate cancer: Code(s): Z12.5 - Encounter for screening for malignant neoplasm of prostate Plan: PSA?is?within?normal Orders: Referrals General Surgery Referral L72.9 - Follicular cyst of the skin and subcutaneous tissue, unspecified Gastroenterology Referral Z12.11 - Encounter for screening for malignant neoplasm of colon Coding Level of Care Code Est Pt Level 3 (76668) Est Pt Prev Care 40-64y(70149) Diagnoses Annual physical exam Z00.00 Low HDL (under 40) E78.6 Allergic rhinitis J30.9 Cyst of skin L72.9 Bleeding nose R04.0 Screening for colon cancer Z12.11 Screening for prostate cancer Z12.5
[2023-07-30 14:21] VITALS: BP 124/78; PULSE 74; RESP 16; TEMP 36.6; O2SAT 96; BMI 45.5
== END 2023-07-30 14:51 | disposition home or self-care (01) ==
PROVIDERS: PCP Family Medicine; Visit Provider Family Medicine
DX: Z00.00 Encounter for general adult medical examination without abnormal findings (principal); E78.6 Lipoprotein deficiency; J30.9 Allergic rhinitis, unspecified; L72.9 Follicular cyst of the skin and subcutaneous tissue, unspecified; R04.0 Epistaxis; Z12.11 Encounter for screening for malignant neoplasm of colon; Z12.5 Encounter for screening for malignant neoplasm of prostate
CPT/HCPCS: 99213; 99396

== ENCOUNTER 2023-08-18 10:37 | Outpatient (AMB) | payer OTHER, SELFPAY ==
--- NOTE | 2023-08-18 10:37 | MHC.OFFVIS ---
Vital Signs 08/18/23 10:47 Height 5 ft 8 in Weight 297 lb BMI 45.2 BP 153/73 H Blood Pressure Location Rt brachial Position Sitting Pulse 80 Intake Visit Reasons: EIC~ Lt med thigh Intake Note: Patient referred by PCP Dr. Echevarria for cyst on Lt med thigh. Present for yrs. Patient c/o: caused from friction on a hot summer day. 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 Has significantly increased in size become more symptomatic. He would like to have removed. He has no such lesions elsewhere. Chart was reviewed patient evaluate [facility] Medical History Allergic rhinitis Morbid obesity Surgical History (Updated 08/18/23 @ 10:57 by Kishor Asif MD) [place] teeth extracted No pertinent past surgical history Family History Father Cataract Mother Lymphedema Obesity Brother No problems noted. Brother No problems noted. Sister No problems noted. 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 Current occupational exposures/hazards: No Cognitive needs: No Hearing needs: No Vision needs: No Physical Exam Vital Signs: Last Vital Signs Pulse 80 08/18/23 10:47 BP 153/73 H 08/18/23 10:47 BMI result Body Mass Index 45.2 Chest Other: Chest breath sounds bilaterally, HS 1 in 2 GI Other: Corpulent abdomen, soft, benign Extrem Other: Patient has a massive left upper inner thigh/perineal mass consistent with a large lipoma measuring approximately 15 x 8 cm Assessment & Plan Assessment & Plan (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 All questions answered. Arrangements made for this. Patient will need to be sedentary for a few weeks after which was reviewed with him as well and no strenuous activities until the wound has healed. Coding Level of Care Code New Pt Level 5 (78165) Diagnoses Lipomatosis gigantea E88.2
[2023-08-18 10:47] VITALS: BP 153/73; PULSE 80; BMI 45.2
== END 2023-08-18 10:55 | disposition home or self-care (01) ==
PROVIDERS: PCP Family Medicine; Referring Provider Family Medicine; Visit Provider Surgery
DX: E88.2 Lipomatosis, not elsewhere classified (principal)
CPT/HCPCS: 99205

== ENCOUNTER → 2023-08-18 10:37 | Outpatient (BNVA) | payer OTHER, SELFPAY | PROVIDERS: PCP Family Medicine; Referring Provider Family Medicine; Visit Provider Surgery ==

== ENCOUNTER 2023-09-12 06:53 | Day surgery (SDC) | payer OTHER, SELFPAY ==
[2023-09-10 11:04] VITALS: BMI 45.2
--- NOTE | 2023-09-10 13:04 | MHC.SHP ---
Pre-Procedural Eval Section A - 24 Hr Update-Section A only Date of Service: 09/12/23 The patient is an INPATIENT: No Changes since office visit: No Cold of Flu in the past 2 weeks, No New Medical Problems, No Changes in Medication and No Patient answered all questions Section B - Complete if H&P > 30 days Chief Complaint: Lipomatosis, Allergies: Allergies Allergy/AdvReac Type Severity Reaction Status Date / Time cat dander [CATS] Allergy Mild SNEEZING, Verified 08/18/23 10:41 ITCHY EYES Seasonal Allergies Allergy Mild sneezing/runny Verified 09/10/23 11:00 nose Plan I have reviewed the history and physical and performed a pertinent physical examination on my patient. No changes have occurred unless specified. Time Spent With Patient Time: Total time managing care of this patient today ____ minutes.
--- NOTE | 2023-09-10 15:15 | P.CONAN_ITS ---
Documented by User: Nory Aquino NP 09/10/23 15:16 HPI - Anesthesia Eval Consult details Narrative: 48yo M for Left Wide Local Excision Perineal large mass, LITHOTOMY PMFSH Active Problems Active Problems: All Active Problems Lipomatosis gigantea (Acute) Cyst of skin (Acute) Bleeding nose (Acute) Left shoulder pain (Acute) Screening for prostate cancer (Acute) Screening for colon cancer (Acute) HEDRICK (nonalcoholic steatohepatitis) (Acute) Viral illness (Acute) High triglycerides (Acute) Skin tag (Acute) Low testosterone (Acute) Elevated alanine aminotransferase (ALT) level (Acute) Low libido (Acute) Sleep apnea (Acute) Lower extremity edema (Acute) Elevated blood pressure reading without diagnosis of hypertension (Acute) REM sleep behavior disorder (Acute) Morbid obesity with BMI of 50.0-59.9, adult (Acute) Low HDL (under 40) (Acute) Elevated fasting blood sugar (Acute) Anxiety (Acute) Obesity, Class III, BMI 40-49.9 (morbid obesity) (Acute) Annual physical exam (Acute) Allergic rhinitis (Acute) Morbid obesity (Acute) Past Medical History Medical History Anxiety Sleep apnea HEDRICK (nonalcoholic steatohepatitis) Allergic rhinitis Morbid obesity Family History Family History Father Cataract Mother Lymphedema Obesity Brother No problems noted. Brother No problems noted. Sister No problems noted. Maternal Grandmother Dementia Surgical History Surgical History [place] teeth extracted Social History Social History Housing: House Alcohol intake: current Alcohol intake frequency: holidays/special occasions only Patient Tobacco Use Status: Former Tobacco user Quit Date: 2008 Cigarette Packs Per Day: 3 Years Smoked: 5 e-Cigarette/Vaping Use: Never Used Second Hand Smoke Exposure: No Use of substances other than those prescribed or required for medical reasons: No Are you DNR?: No Advance Directives: No Advance Directives Information Provided: Yes service: No Current occupational status: employed 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 Current occupational exposures/hazards: No Cognitive needs: No Hearing needs: No Vision needs: No Meds Allergies Allergy/AdvReac Type Severity Reaction Status Date / Time cat dander [CATS] Allergy Mild SNEEZING, Verified 08/18/23 10:41 ITCHY EYES Seasonal Allergies Allergy Mild sneezing/runny Verified 09/10/23 11:00 nose Home Medications ?Medication ?Instructions ?Recorded ?Confirmed ?Last Taken ?Type oxymetazoline 0.05 % nasal spray 2 spray intranasal Q12H PRN Nasal 09/10/22 09/10/23 Unknown History (Afrin (oxymetazoline)) Congestion Saccharomyces boulardii 250 mg 250 mg PO BID 04/25/23 09/10/23 Unknown History capsule (Daily Probiotic (S. boulardii)) ztnojdnvrwue-bhy-yckdl acid-vit 1 tab PO DAILY 04/25/23 09/10/23 Unknown History K-lycop 400 mcg-20 mcg-370 mcg tablet (Men's 50 Plus Multivitamin) fluticasone propionate 50 1 spray intranasal BID PRN Nasal 06/03/23 09/10/23 Unknown History mcg/actuation nasal Congestion spray,suspension (Flonase Allergy Relief) hydroxyzine HCl 50 mg tablet 50 mg PO BEDTIME 06/18/23 09/10/23 Unknown History psyllium husk 3.4 gram/5.4 gram 1 tbsp PO DAILY 06/18/23 09/10/23 Unknown History oral powder (Metamucil) Exam Height,Weight and Vital Signs: Height 5 ft 8 in Weight 134.717 kg Pertinent Lab Results Pertinent Lab Results: Laboratory Tests 03/26/21 07/25/23 11:35 11:53 WBC 7.1 Hgb 14.9 Hct 42.2 Plt Count 326 Sodium 140 Potassium 4.3 Chloride 105 Carbon Dioxide 28 BUN 17 H Creatinine 1.01 Assessment and Plan Assessment Anesthesia Assessment: Chart Reviewed Documented by User: Teresa Peterson MD 09/12/23 08:19 PMFSH Past Medical History Medical History Anxiety Sleep apnea HEDRICK (nonalcoholic steatohepatitis) Allergic rhinitis Morbid obesity Family History Family History Father Cataract Mother Lymphedema Obesity Brother No problems noted. Brother No problems noted. Sister No problems noted. Maternal Grandmother Dementia Family history of problems with anesthesia: No Surgical History Surgical History [place] teeth extracted History of Problems with Anesthesia: No Social History Social History Housing: House Alcohol intake: current Alcohol intake frequency: holidays/special occasions only Patient Tobacco Use Status: Former Tobacco user Quit Date: 2008 Cigarette Packs Per Day: 3 Years Smoked: 5 e-Cigarette/Vaping Use: Never Used Second Hand Smoke Exposure: No Use of substances other than those prescribed or required for medical reasons: No Are you DNR?: No Advance Directives: No Advance Directives Information Provided: Yes service: No Current occupational status: employed 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 Current occupational exposures/hazards: No Cognitive needs: No Hearing needs: No Vision needs: No Meds Allergies Allergy/AdvReac Type Severity Reaction Status Date / Time cat dander [CATS] Allergy Mild SNEEZING, Verified 08/18/23 10:41 ITCHY EYES Seasonal Allergies Allergy Mild sneezing/runny Verified 09/10/23 11:00 nose Home Medications ?Medication ?Instructions ?Recorded ?Confirmed ?Last Taken ?Type oxymetazoline 0.05 % nasal spray 2 spray intranasal Q12H PRN Nasal 09/10/22 09/10/23 Unknown History (Afrin (oxymetazoline)) Congestion Saccharomyces boulardii 250 mg 250 mg PO BID 04/25/23 09/10/23 Unknown History capsule (Daily Probiotic (S. boulardii)) ujfzmyukpjwm-wqh-lgxrr acid-vit 1 tab PO DAILY 04/25/23 09/10/23 Unknown History K-lycop 400 mcg-20 mcg-370 mcg tablet (Men's 50 Plus Multivitamin) fluticasone propionate 50 1 spray intranasal BID PRN Nasal 06/03/23 09/10/23 Unknown History mcg/actuation nasal Congestion spray,suspension (Flonase Allergy Relief) hydroxyzine HCl 50 mg tablet 50 mg PO BEDTIME 06/18/23 09/10/23 Unknown History psyllium husk 3.4 gram/5.4 gram 1 tbsp PO DAILY 06/18/23 09/10/23 Unknown History oral powder (Metamucil) Exam Airway Mallampati Class: II TM Dist: >3cm Neck ROM: Full Heart: rrr Lungs: cta Assessment and Plan Assessment Anesthesia Assessment: Anesthesia Plan Discussed Final Anesthetic Review Family History of Problems with Anesthesia: No History of Problems with Anesthesia: No NPO: Yes ASA Class: III Final Preanesthetic Review: No Changes in Pt Med Stat, Meds/Allgs Chart Reviewed, Consent Obtained/Reviewed and Anes Risks/Benef Reviewed Patient Risk: Intermediate Procedure Risk: Intermediate Anesthetic Plan Anesthetic Plan: GA Disposition: Standard PACU
[2023-09-12] VITALS (7 sets, daily range): BP systolic 128–141; BP diastolic 70–88; PULSE 66–79; RESP 18; TEMP 36.3–36.8; O2SAT 97–99; BMI 45.9
--- NOTE | 2023-09-12 07:01 | ECG_ITS ---
Test Reason : caio, obesity Blood Pressure : / mmHG Vent. Rate : 064 BPM Atrial Rate : 064 BPM P-R Int : 150 ms QRS Dur : 102 ms QT Int : 390 ms P-R-T Axes : 051 048 050 degrees QTc Int : 402 ms Normal sinus rhythm Normal ECG No previous ECGs available Referred By: Nory Aquino Electronically Signed By:Tee Kaufman
[2023-09-12] MEDS: Lactated Ringers 1,000 ML 100 ML IVCONT (07:51)
--- NOTE | 2023-09-12 09:37 | W.PM.OPN ---
Operative Note Operative Note Date of Service: 09/12/23 Narrative: Preoperative diagnosis: [] Large perineal lipoma left Postop diagnosis: [] Same Procedure [] wide local excision large left peritoneal lipoma Surgeon: [] Yefri Asbestos Hazard Abatement Worker: [] Type of Anesthesia: [] MAC Indication for surgery: [] A large left perineal soft tissue mass consistent with a massive lipoma with final dimensions 12 x 8 cm Findings: [] Patient brought to the operating room, placed on operative table supine position, after an adequate level of general anesthesia was induced, patient was placed in lithotomy position. Bilateral perineal areas were prepped and draped in usual sterile fashion. Using a longitudinal by elliptical incision encompassing the protuberant and mass was carried down through skin, subcutaneous tissue, and circumferentially dissection of the large lipoma was accomplished with the final dimensions as described above using Bovie. Specimen sent to pathology. Wound was irrigated, secured hemostasis, and closed using interrupted inverted dermal 3-0 Vicryl sutures followed by Steri-Strips and sterile dressings. Wound was infiltrated at the beginning at the end of the case with 0.5% Marcaine. Sponge, needle, and instrument counts were reported correct. Patient tolerated the procedure well and emerged from anesthesia stable condition. EBL minimal
== END 2023-09-12 11:06 | disposition home or self-care (01) ==
PROVIDERS: PCP Family Medicine; Visit Provider Surgery
PROC: (CPT 27043; principal; 2023-09-12 08:50)
DX: E88.2 Lipomatosis, not elsewhere classified (principal); R22.42 Localized swelling, mass and lump, left lower limb; E66.01 Morbid (severe) obesity due to excess calories; Z68.42 Body mass index [BMI] 45.0-49.9, adult; Z87.891 Personal history of nicotine dependence
CPT/HCPCS: 27043; 88304; 93005; J0131; J0330; J0690; J1100; J1885; J2250; J2405; J2704; J2795; J3010

== ENCOUNTER → 2023-09-12 06:53 | Outpatient (BNV) | payer OTHER, SELFPAY | PROVIDERS: PCP Family Medicine; Visit Provider Surgery | DX: D17.72 Benign lipomatous neoplasm of other genitourinary organ (principal) | CPT/HCPCS: 27043 ==

== ENCOUNTER → 2023-09-12 07:01 | Outpatient (BNV) | payer OTHER, SELFPAY | PROVIDERS: PCP Family Medicine; Visit Provider Internal Medicine Cardiovascular Disease | DX: G47.33 Obstructive sleep apnea (adult) (pediatric) (principal) | CPT/HCPCS: 93010 ==

== ENCOUNTER 2023-09-22 13:14 | Outpatient (AMB) | payer OTHER, SELFPAY ==
--- NOTE | 2023-09-22 13:15 | MHC.OFFVIS ---
Intake Visit Reasons: S/P WLE Lt perineal large mass Intake Note: Patient here s/p WLE Lt perineum. Reports incision healing well. Patient c/o: only took rx pain meds the day after procedure. Denies oozing, pain. SX: 09-12-23. 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 He has minimal incisional discomfort. He has starting a diet. Having regular bowel habits . Increasing his activity level [facility] Medical History Anxiety Sleep apnea HEDRICK (nonalcoholic steatohepatitis) Allergic rhinitis Morbid obesity Surgical History Lipomatosis gigantea (09/12/23) [place] teeth extracted Family History Father Cataract Mother Lymphedema Obesity Brother No problems noted. Brother No problems noted. Sister No problems noted. 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 Assessment & Plan Assessment & Plan (1) Postop check: Code(s): Z09 - Encounter for follow-up examination after completed treatment for conditions other than malignant neoplasm Category: Surgical Plan Patient has been given very specific local instructions including avoiding strenuous activities for next few weeks time and will otherwise follow-up p.r.n.. All questions answered. Coding Level of Care Code Global (74582) Diagnoses Postop check Z09
== END 2023-09-22 13:20 | disposition home or self-care (01) ==
PROVIDERS: PCP Family Medicine; Visit Provider Surgery
DX: Z09 Encounter for follow-up examination after completed treatment for conditions other than malignant neoplasm (principal)
CPT/HCPCS: 99024

== ENCOUNTER → 2023-09-22 13:14 | Outpatient (BNVA) | payer OTHER, SELFPAY | PROVIDERS: PCP Family Medicine; Visit Provider Surgery ==

== ENCOUNTER 2023-09-29 13:06 | Outpatient (AMB) | payer OTHER, SELFPAY ==
--- NOTE | 2023-09-29 13:07 | A.OFFVIS_ITS ---
Intake Visit Reasons: perianal mass, increase discharge Intake Note: Patient here s/p excision of large perianal lipoma. Patient c/o: oozing, painful. Experienced just one episode of gushing blood last week (has photos). EXC: 09-12-23. 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 Otherwise he has been doing well. He has been doing light duty at work. No other wound issues. 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 Brother No problems noted. Sister No problems noted. 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 Patient was reassured. Assessment & Plan Assessment & Plan (1) Postop check: Code(s): Z09 - Encounter for follow-up examination after completed treatment for conditions other than malignant neoplasm Category: Surgical Plan At the present time, patient may have spontaneously drained a small seroma but there is no acute wound issue at this visit. Patient is continue light duty/avoiding strenuous activities next few weeks time we will otherwise follow- up p.r.n.. All questions answered. Coding Level of Care Code Global (95514) Diagnoses Postop check Z09
== END 2023-09-29 13:24 | disposition home or self-care (01) ==
PROVIDERS: PCP Family Medicine; Visit Provider Surgery
DX: Z09 Encounter for follow-up examination after completed treatment for conditions other than malignant neoplasm (principal)
CPT/HCPCS: 99024

== ENCOUNTER → 2023-09-29 13:06 | Outpatient (BNVA) | payer OTHER, SELFPAY | PROVIDERS: PCP Family Medicine; Visit Provider Surgery ==

== ENCOUNTER 2023-10-06 22:04 | Emergency (ER) | payer OTHER, SELFPAY ==
--- NOTE | ~2023-10-06 | CT_ITS ---
EXAMINATION: CT HIP WITH CONTRAST, LEFT CLINICAL INFORMATION: Pain. COMPARISON: None available. TECHNIQUE: Contiguous axial enhanced CT scan images of the left hip obtained after the intravenous administration of 85 mL Omnipaque 350. Sagittal and coronal reformatted images also obtained. This CT examination was performed using dose optimization techniques as appropriate, variously including the following: *Automated exposure control *Adjustment of mA and/or kV according to patient size (this includes techniques or standardized protocols for targeted exams where dose is matched to indication/reason for exam; i.e. extremities or head) *Use of iterative reconstruction technique DLP: 555 mGy-cm FINDINGS: OSSEOUS STRUCTURES: Mild left hip degenerative change with minimal loss of joint space and mild osteophyte formation. There is no fracture or bony erosive change. SOFT TISSUES: There is a 10 x 4.2 x 8.1 cm medial left upper thigh subcutaneous collection with surrounding infiltration and adjacent skin thickening. The muscular structures are unremarkable. OTHER: There are diverticula of the descending and sigmoid colon. The remaining visualized intrapelvic structures are unremarkable. CT/CT hip LT w IV con IMPRESSION: 1. Large medial left upper thigh subcutaneous collection with surrounding infiltration and adjacent skin thickening. Abscess suspected. 2. Mild left hip degenerative change. No fracture or bony erosive change. 3. Diverticulosis of the descending and sigmoid colon without evidence of diverticulitis.
[2023-10-06 22:34] VITALS: BP 172/106; PULSE 106; RESP 20; TEMP 36.7; O2SAT 96; BMI 45.9
[2023-10-06 22:53] LABS: MANUAL DIFF FLAG NO
[2023-10-06 22:54] LABS: Basophils Absolute Auto 0.1 X10*3/uL (0.0-0.2); Basophils Percent Auto 0.6 % (0-2); Eosinophils Absolute Auto 0.3 X10*3/uL (0.0-0.4); Eosinophils Percent Auto 1.7 % (0-4); Hematocrit 42.6 % (42.0-52.0); Hemoglobin 15.9 g/dl (14.0-18.0); Imm Gran Abs Auto 0.06 X10*3/uL (0.00-0.03); Imm Gran Pct Auto 0.4 % (0.0-0.4); Lymphocytes Absolute Auto 2.8 X10*3/uL (1.2-4.9); Lymphocytes Percent Auto 17.9 % (20-40); Mean Corpuscular HGB Conc 37.3 g/dl (31.0-36.0); Mean Corpuscular Hemoglobin 31.7 pg (27.0-33.0); Mean Corpuscular Volume 84.9 fL (80.0-98.0); Monocytes Absolute Auto 1.3 X10*3/uL (0.1-1.2); Monocytes Percent Auto 8.3 % (2-11); Neutrophils Percent Auto 71.1 % (45-73); Platelet Count 333 X10*3/uL (160-400); Red Blood Count 5.02 X10*6/uL (4.60-5.80); Red Cell Distribution Width 11.5 % (11.0-16.0); White Blood Count 15.5 X10*3/uL (4.8-10.8)
[2023-10-06 23:10] LABS: Alanine Aminotransferase 22 U/L (0-40); Albumin Level 4.4 g/dL (3.5-5.0); Alkaline Phosphatase 87 U/L (39-117); Anion Gap 15 (12-20); Aspartate Amino Transferase 17 U/L (5-37); Bilirubin Total 0.5 mg/dL (0.0-1.0); Blood Urea Nitrogen 17 mg/dL (9-16); Calcium 9.1 mg/dL (8.4-10.2); Carbon Dioxide 24 mmol/L (22-29); Chloride 106 mmol/L (96-108); Creatinine Clr Calc Pharmacy 121.3; Estimated Glomerular Filt Rate > 60; Glucose Random 129 mg/dL (60-115); Potassium 3.9 mmol/L (3.3-5.1); Sodium 141 mmol/L (135-145); Total Protein 7.8 g/dL (6.5-8.0)
[2023-10-07 00:29] VITALS: BP 127/93; PULSE 102; RESP 19; TEMP 36.8; O2SAT 96
--- NOTE | 2023-10-07 01:29 | ED.GENADULT ---
HPI - General Adult General Chief complaint: General Medical Stated complaint: left thigh swelling s/p surgery 09/11 Time Seen by Provider: 10/07/23 00:10 Source: patient Mode of arrival: ambulatory History of Present Illness ED Provider: Dr Lema HPI narrative: 48-year-old male, not a diabetic, underwent removal of a lipoma on 09/11 and now presents with increased redness/swelling/pain at the site, patient also endorses that the pain is now extending into his left gluteal area and groin. Related Data Home Medications ?Medication ?Instructions ?Recorded ?Confirmed oxymetazoline 0.05 % nasal spray 2 spray intranasal Q12H PRN Nasal 09/10/22 09/29/23 (Afrin (oxymetazoline)) Congestion Saccharomyces boulardii 250 mg 250 mg PO BID 04/25/23 09/29/23 capsule (Daily Probiotic (S. boulardii)) goxwjawqorgv-tep-ngnas acid-vit 1 tab PO DAILY 04/25/23 09/29/23 K-lycop 400 mcg-20 mcg-370 mcg tablet (Men's 50 Plus Multivitamin) fluticasone propionate 50 1 spray intranasal BID PRN Nasal 06/03/23 09/29/23 mcg/actuation nasal Congestion spray,suspension (Flonase Allergy Relief) hydroxyzine HCl 50 mg tablet 50 mg PO BEDTIME 06/18/23 09/29/23 psyllium husk 3.4 gram/5.4 gram 1 tbsp PO DAILY 06/18/23 09/29/23 oral powder (Metamucil) Previous Rx's ?Medication ?Instructions ?Recorded CPAP (CPAP Machine/Device) #1 ea 12/20/20 sildenafil 50 mg tablet (Viagra) 50 mg PO DAILY PRN sexual activity 07/30/23 30 days #10 tabs Allergies Allergy/AdvReac Type Severity Reaction Status Date / Time cat dander [CATS] Allergy Mild SNEEZING, Verified 10/06/23 22:37 ITCHY EYES Seasonal Allergies Allergy Mild sneezing/runny Verified 10/06/23 22:37 nose Review of Systems Review of Systems: Pertinent positives and negatives as stated in HPI [facility] Past Medical History Source: nursing notes reviewed Medical History Anxiety Sleep apnea HEDRICK (nonalcoholic steatohepatitis) Allergic rhinitis Morbid obesity 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 Brother No problems noted. Sister No problems noted. 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 GENERAL: Elevated BMI, Well developed, well nourished, in no acute distress. HEAD: Normocephalic/atraumatic EYES: PERRLA, EOMI EARS: Ext canals without abnormality NOSE: Nares patent bilateral OROPHARYNX: no oral lesions noted, posterior pharynx clear NECK: Supple, no adenopathy LUNGS: Normal breath sounds. No adventitious sounds or accessory muscle use. SpO2<96> CARDIOVASCULAR: Regular rate and rhythm without noted murmurs ABDOMEN: Soft, non-tender, non-distended with bowel sounds. MUSCULOSKELETAL: No tenderness, deformities, or effusions noted on gross inspection. EXTREMITIES: No cyanosis, clubbing or edema. LEFT LOWER EXTREMITY:: Fluctuant 4.5 x 7cm with surrounding erythema and mild induration, no crepitus SKIN: Inspection of the skin reveals no rashes NEUROLOGIC: Alert and oriented x 4. Strength and sensation to light touch were grossly intact x 4. Medical Decision Making Medical Decision Making [facility] Narrative: 0045: 48-year-old male with history and clinical presentation, DDX: Cellulitis, fluid collection (abscess versus seroma), no clinical suspicion for Jayesh's I reviewed all investigations and hematologic indices are significant for leukocytosis without anemia or thrombocytopenia. Chemistry indices are negative for RYAN/electrolyte or liver enzyme derangements. Patient will get IV/antibiotics/lactic acid/blood cultures/IV fluid. 0049: I discussed case with Dr. Asif who wishes to wait for a CT scan. Signed out to Dr Narvaez - f/u CT scan results Differential Diagnosis Differential Diagnoses: The differential diagnosis associated with the presentation includes Please see the discussion above Admission/Observation Consideration of admission/observation: Escalation of care including admission/observation considered Please see the discussion Lab Data [facility] Lab Attestation statement: I reviewed the patient's lab results. See the discussion above 10/06/23 22:49 10/06/23 22:49 Labs: Lab Results 10/06/23 Range/Units 22:49 WBC 15.5 H (4.8-10.8) X10*3/uL RBC 5.02 (4.60-5.80) X10*6/uL Hgb 15.9 (14.0-18.0) g/dl Hct 42.6 (42.0-52.0) % MCV 84.9 (80.0-98.0) fL MCH 31.7 (27.0-33.0) pg MCHC 37.3 H (31.0-36.0) g/dl RDW 11.5 (11.0-16.0) % Plt Count 333 (160-400) X10*3/uL MPV 10.0 (9.4-12.4) fL Immature Gran % (Auto) 0.4 (0.0-0.4) % Neut % (Auto) 71.1 (45-73) % Lymph % (Auto) 17.9 L (20-40) % [place] % (Auto) 8.3 (2-11) % Eos % (Auto) 1.7 (0-4) % Baso % (Auto) 0.6 (0-2) % Lymph # (Auto) 2.8 (1.2-4.9) X10*3/uL [place] # (Auto) 1.3 H (0.1-1.2) X10*3/uL Eos # (Auto) 0.3 (0.0-0.4) X10*3/uL Baso # (Auto) 0.1 (0.0-0.2) X10*3/uL Abs Immat Gran (auto) 0.06 H (0.00-0.03) X10*3/uL Absolute Neuts (auto) 11.0 H (2.0-8.3) x10*3/uL Absolute Nucleated RBC 0.000 (0.0-0.012) X10*3/uL Nucleated RBC % (auto) 0.0 (0.0-0.2) /100WBC Sodium 141 (135-145) mmol/L Potassium 3.9 (3.3-5.1) mmol/L Chloride 106 (96-108) mmol/L Carbon Dioxide 24 (22-29) mmol/L Anion Gap 15 (12-20) BUN 17 H (9-16) mg/dL Creatinine 1.02 (0.5-1.4) mg/dL Estim Creat Clear Calc 121.3 Estimated GFR > 60 Random Glucose 129 H (60-115) mg/dL Calcium 9.1 (8.4-10.2) mg/dL Total Bilirubin 0.5 (0.0-1.0) mg/dL AST 17 (5-37) U/L ALT 22 (0-40) U/L Alkaline Phosphatase 87 (39-117) U/L Total Protein 7.8 (6.5-8.0) g/dL Albumin 4.4 (3.5-5.0) g/dL External Record Review External record reviewed: Outpatient record and Prior outpatient labs Critical Care Time Critical Care Time Critical Care Time: Yes Total Critical Care Time: 60 Attestation: I personally attest to this time spent taking care of the patient. Discharge Plan Discharge Clinical Impression: Abscess of left leg, Cellulitis of left leg Patient Disposition: Still a Patient Prescriptions: No Action (DME) CPAP Machine/Device Device See Rx Instructions .Route Qty: 1 0RF Rx Instructions: DX: G47.30. Use daily As directed; Auto CPAP 6-16 cm H2O. Duration: 999days/Lifetime. Disp#1 Men's 50 Plus Multivitamin 400-20-370 mcg tablet 1 tab PO DAILY Saccharomyces boulardii [Daily Probiotic (S. boulardii)] 250 mg capsule 250 mg PO BID sildenafil [Viagra] 50 mg tablet 50 mg PO DAILY PRN (Reason: sexual activity) 30 Days Qty: 10 2RF Rx Instructions: administer 30 minutes to 4 hours before activity oxymetazoline [Afrin (oxymetazoline)] 0.05 % spray,non-aerosol 2 spray intranasal Q12H PRN (Reason: Nasal Congestion) hydroxyzine HCl 50 mg tablet 50 mg PO BEDTIME Metamucil 3.4 gram/5.4 gram powder 1 tbsp PO DAILY Rx Instructions: mix into at least 8 oz of water or juice before administering fluticasone propionate [Flonase Allergy Relief] 50 mcg/actuation spray,suspension 1 spray intranasal BID PRN (Reason: Nasal Congestion) Rx Instructions: administer into each nostril Print Language: Citizen [place]
[2023-10-07] MEDS: Piperacillin Sodium/Tazobactam 3.375 GM in 0.9 % Sodium Chloride 50 ML IV (01:44)
[2023-10-07] MEDS: 0.9 % Sodium Chloride 500 ML 999 ML IV (01:48)
[2023-10-07] MEDS: Ketorolac Tromethamine 30 MG/ML VIAL 15 MG IVPUSH (01:48)
[2023-10-07] MEDS: iohexoL 350 MG/ML 100 ML INFUS..BTL 85 ML IV (02:06)
[2023-10-07 02:40] VITALS: BP 108/51; PULSE 83; RESP 18; TEMP 36.8; O2SAT 97
--- NOTE | 2023-10-07 04:54 | PC.NURSE ---
Addendum entered by Lea Cavanaugh 10/07/23 04:56: Swelling and redness noted. Pt reports decrease swelling. Original Note: This comic book writer assumed care of this Pt at this time. Pt A&Ox3, reports pain to left groin area only when moving. Pt updated on plan of care.
[2023-10-07 05:55] VITALS: BP 127/81; PULSE 89; RESP 18; TEMP 36.9; O2SAT 98
== END 2023-10-07 05:55 | disposition home or self-care (01) ==
PROVIDERS: Student in an Organized Health Care Education/Training Program; Emergency Provider Internal Medicine; PCP Family Medicine
DX: L02.416 Cutaneous abscess of left lower limb (principal); L03.116 Cellulitis of left lower limb; M79.605 Pain in left leg; Z79.899 Other long term (current) drug therapy
CPT/HCPCS: 36415; 73701; 80053; 83605; 85025; 87040; 87070; 87077; 87186; 87205; 96365; 96366; 96375; 99284; 99285; J1885; J2543; Q9967

== ENCOUNTER 2023-10-08 09:06 | Outpatient (AMB) | payer OTHER, SELFPAY ==
--- NOTE | 2023-10-08 09:12 | MHC.OFFVIS ---
Intake Visit Reasons: Abscess Intake Note: Patient scheduled as an urgent post op for abscess on groin. Patient c/o: pain. Difficulty to sit. Still taking cephalexin course. 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 Use daily As directed; Auto CPAP 6-16 cm H2O. Duration: 999days/Lifetime. Disp#1 doxycycline hyclate 100 mg PO BID fluticasone propionate 50 mcg/actuation (Flonase Allergy Relief) 1 spray intranasal BID PRN hydroxyzine HCl 50 mg PO BEDTIME ypphkmmp-gmf-qjoxj-vit K-lycop 400-20-370 mcg (Men's 50 Plus Multivitamin) 1 tab PO DAILY oxymetazoline 0.05% (Afrin (oxymetazoline)) 2 sprays intranasal Q12H PRN psyllium husk (Metamucil) 1 tbsp PO DAILY Saccharomyces boulardii (Daily Probiotic (S. boulardii)) 250 mg PO BID sildenafil (Viagra) 50 mg PO DAILY PRN 30 days HPI Comments Details: Patient presents status post ER visit for aspiration of seroma of left upper inner thigh status post excision of giant lipoma. Presents here because of recurrence of seroma. 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 Brother No problems noted. Sister No problems noted. 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 No evidence of any infection. Patient has fluctuance consistent with seroma. Risks, benefits, alternatives of seroma aspiration were reviewed with the patient and he wishes to proceed. This included but not limited to bleeding, infection, recurrence, numbness, pain, scarring. Office Procedures Aspiration of Seroma Details: After appropriate positioning, under sterile technique, aspiration approximate 50 cc of seroma of left upper inner posterior thigh was uneventfully performed. Well tolerated. Dressing applied. Aspiration of Seroma: 79910 Seroma Aspiration All charges added?: Procedure code (CPT) selection complete Assessment & Plan Assessment & Plan (1) Seroma due to trauma: Code(s): T79.2XXA - Traumatic secondary and recurrent hemorrhage and seroma, initial encounter Category: Surgical Plan: Patient patient once again has been given local instructions including including avoiding strenuous activities. 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 If his seroma recurs he has other wound issues or complaints, patient has been instructed to call the office. He will otherwise follow-up p.r.n.. All questions answered Orders: Orders AMB Aspiration of Seroma Today T79.2XXA - Traumatic secondary and recurrent hemorrhage and seroma, initial encounter Coding Level of Care Code Est Pt Level 4 (86719) Global (84226) Diagnoses Seroma due to trauma T79.2XXA CPT Codes Aspiration of Seroma ([id number])
== END 2023-10-08 09:27 | disposition home or self-care (01) ==
PROVIDERS: PCP Family Medicine; Visit Provider Surgery
DX: T79.2XXA Traumatic secondary and recurrent hemorrhage and seroma, initial encounter (principal)
CPT/HCPCS: 99024

== ENCOUNTER → 2023-10-08 09:06 | Outpatient (BNVA) | payer OTHER, SELFPAY | PROVIDERS: PCP Family Medicine; Visit Provider Surgery ==

== ENCOUNTER 2023-11-19 09:33 | Outpatient (AMB) | payer OTHER, SELFPAY ==
--- NOTE | 2023-11-19 09:37 | A.OFFPC_ITS ---
Vital Signs 11/19/23 09:45 Height 5 ft 7 in Weight 300 lb 8 oz BMI 47.1 BP 120/80 Blood Pressure Location Lt brachial Position Sitting Respiration 16 Pulse 75 Pulse Source Pulse Oximeter Temp 98.3 F Temp Source Tympanic Pulse Oximetry (%) 75 L Oxygen Delivery Method Room Air Intake Visit Reasons: F/U leg surg Intake Note: follow up from leg surgery, RT arm pain decreased griping in the RT hand Allergies cat dander [CATS] Allergy (Mild, Verified 11/19/23 09:41) SNEEZING, ITCHY EYES Seasonal Allergies Allergy (Mild, Verified 11/19/23 09:41) sneezing/runny nose Tobacco use date assessed: 11/19/23 Dental Screening Dental Screen Date: 11/19/23 Did you have a dental visit in the last 12 months?: Yes Did you have a dental problem in the last 6 months where you did not have access to dental care?: No Was dental information given to patient?: Patient has dentist HPI F/U leg surg HPI Details 48 y/o male presents to f/u leg surgery. Had underwent removal of lipoma 09/11. He notes he had went to the emergency room for L leg cellutis 10/07/23 - had presented with increased redness/swelling/pain at the site. Wound well healed. He has complaints of a forearm tendonitis. 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 Brother No problems noted. Sister No problems noted. 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 Brendan Don, Shazia Zhu, Elgin Wright and colleagues, with an educational milton from [employer]. Review of Systems Const Denies chills, Denies fatigue, Denies fever(s), Denies headache(s) and Denies weakness ENT Denies dizziness and Denies headache(s) Card Denies dyspnea Resp Denies cough, Denies dyspnea, Denies wheezing and Denies other (shortness of breath) Musc Denies numbness and Denies tingling Neuro Denies dizziness, Denies headache(s), Denies numbness, Denies tingling and Denies weakness Psych Denies anxiety and Denies depression Endo Denies fatigue Aller/Immun Denies wheezing Physical exam (Primary Care) Vital Signs: Last Vital Signs Temp 98.3 F 11/19/23 09:45 Pulse 75 11/19/23 09:45 Resp 16 11/19/23 09:45 BP 120/80 11/19/23 09:45 Pulse Ox 75 L 11/19/23 09:45 Oxygen Delivery Method Room Air 11/19/23 09:45 BMI result Body Mass Index 47.1 Tobacco/Smoking Status: Tobacco use Status Tobacco use date assessed 11/19/23 11/19/23 09:47 Patient Tobacco Use Status Former Tobacco user 11/19/23 09:39 e-Cigarette/Vaping Use Never Used 11/19/23 09:39 Thrive Assessment: Date of Thrive Assessment Date Thrive assessed 05/13/22 11/19/23 09:39 Const General: well developed; No acute distress Nutritional Appearance: well nourished Orientation/consciousness: patient oriented x3 HENMT Head: Yes normocephalic and Yes atraumatic Eyes General: appearance normal, both eyes and all related structures Pupils: Equal, round and reactive pupils present EOM: EOMs intact bilaterally Resp Effort & Inspection: normal respiratory effort Neuro General: patient oriented x3 and gait normal Cranial nerves: Yes Equal, round and reactive pupils present Psych Affect: normal affect Assessment and Plan Assessment & Plan (1) Postop check: Code(s): Z09 - Encounter for follow-up examination after completed treatment for conditions other than malignant neoplasm Plan: Wound?is?well?healed.??No?drainage.??Minimal?erythema?and?no?warmth Should?continue?to?heal?spontaneous Call?or?return?to?office?if?anything?changes/worsened (2) Cellulitis of left leg: Code(s): L03.116 - Cellulitis of left lower limb Plan: As?above Resolved/resolving (3) Forearm tendonitis: Code(s): M77.8 - Other enthesopathies, not elsewhere classified Plan: Relative?rest NSAIDs-will?start?naproxen?b.i.d. Occupational?therapy Ice/heat If?not?improving?will?refer?to?ortho Orders: Orders OT Evaluation and Treatment Today M77.8 - Other enthesopathies, not elsewhere classified Medications: New naproxen 500 mg PO BID 30 days PRN 60 tabs 0RF pain Coding Level of Care Code Est Pt Level 3 (91130) Diagnoses Postop check Z09 Cellulitis of left leg L03.116 Forearm tendonitis M77.8
[2023-11-19 09:45] VITALS: BP 120/80; PULSE 75; RESP 16; TEMP 36.8; O2SAT 75; BMI 47.1
== END 2023-11-19 10:31 | disposition home or self-care (01) ==
PROVIDERS: PCP Family Medicine; Visit Provider Family Medicine
DX: Z09 Encounter for follow-up examination after completed treatment for conditions other than malignant neoplasm (principal); L03.116 Cellulitis of left lower limb; M77.8 Other enthesopathies, not elsewhere classified
CPT/HCPCS: 99213

== ENCOUNTER 2023-12-01 11:18 | Outpatient (AMB) | payer OTHER, SELFPAY ==
--- NOTE | 2023-12-01 11:26 | MHC.OFFVIS ---
Vital Signs 12/01/23 11:27 Height 5 ft 7 in Weight 308 lb 10.354 oz BMI 48.3 BP 140/82 H Blood Pressure Location Lt brachial Position Sitting Pulse 76 Pulse Source Pulse Oximeter Pulse Oximetry (%) 97 Oxygen Delivery Method Room Air Intake Visit Reasons: Obstructive sleep apnea Intake Note: pt is here for sleep apnea, and is doing well cpap, in the past couple of weeks, waking up little more than usual. Strip Mine Supervisor Required: No Allergies cat dander [CATS] Allergy (Mild, Verified 12/01/23 11:54) SNEEZING, ITCHY EYES Seasonal Allergies Allergy (Mild, Verified 12/01/23 11:54) sneezing/runny nose Medication List - Last Reconciled 12/01/23 by Barrett Rangel MD CPAP (CPAP Machine/Device) DX: G47.30. Use daily As directed; Auto CPAP 6-16 cm H2O. Duration: 999days/Lifetime. Disp#1 fluticasone propionate 50 mcg/actuation (Flonase Allergy Relief) 1 spray intranasal BID PRN naproxen 500 mg PO BID PRN 30 days sildenafil (Viagra) 50 mg PO DAILY PRN 30 days Do you need a note to return to daycare/school/sports/work: No HPI HPI Obstructive sleep apnea: Details: 48 YEARS OLD GENTLEMAN WHO IS MORBIDLY OBESE AND A CASE OF OBSTRUCTIVE SLEEP APNEA COMES FOR HIS. ROUTINE FOLLOW-UP AFTER 6 MONTHS HE USES CPAP VERY REGULARLY EVERY NIGHT EXCEPT MISSING ONLY ONCE OR TWICE IN A MONTH. MOST OF THE TIME HE IS USING CPAP FOR MORE THAN 5 HOURS PER NIGHT. HE SLEEPS WELL. DENIES ANY EXCESSIVE DAYTIME SLEEPINESS WEIGHT IS UP AND DOWN, CURRENTLY HE IS FOLLOWING HIS DIET MORE SERIOUSLY AND IS TRYING. TO WALK EVERY DAY HE IS HAPPY WITH HIS CPAP AND DENIES ANY PROBLEMS WITH THE MASK OR CPAP DEVICE. 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 Brother No problems noted. Sister No problems noted. 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 Current occupational exposures/hazards: No Cognitive needs: No Hearing needs: No Vision needs: No Review of Systems Const All systems reviewed & are unremarkable except as noted in HPI and below Eyes Reports no additional complaints ENT Reports no additional complaints and Reports nasal congestion (ALMOST EVERY NIGHT) Card Reports no additional complaints Resp Reports no additional complaints GI Reports no additional complaints Reports no additional complaints Musc Reports no additional complaints Skin/Breast Reports system reviewed and no additional complaints, except as documented Neuro Reports no additional complaints Psych Reports anxiety (Controlled with med) and Reports depression (Controlled with med) Endo Reports no additional complaints Physical Exam Vital Signs: Last Vital Signs Pulse 76 12/01/23 11:27 BP 140/82 H 12/01/23 11:27 Pulse Ox 97 12/01/23 11:27 Oxygen Delivery Method Room Air 12/01/23 11:27 BMI result Body Mass Index 48.3 Const General: comfortable, no acute distress, alert and awake Orientation/consciousness: patient oriented x3 HEENT Head: Yes normal to inspection General nose exam: No nasal polyps present, No nasal discharge present and Other nasal findings present (Has moderate nasal congestion) Face and sinus: Yes sinuses nontender Mouth: oropharynx normal Throat: Yes posterior oropharynx normal Eyes General: appearance normal, both eyes and all related structures Neck Neck: Yes normal visual inspection, Yes no lymphadenopathy, Yes trachea midline and Yes no JVD Thyroid: Thyroid normal Chest Chest palpation & inspection: normal inspection of the chest, normal palpation of entire chest wall and no tenderness Resp Effort & Inspection: normal respiratory effort Auscultation: clear to auscultation bilaterally Percussion: percussion normal Cardio Palpation: normal PMI Rate: regular rate Rhythm: regular rhythm Heart sounds: no gallops and no murmurs Peripheral pulses: Peripheral pulses 2+ throughout GI Palpation (GI): Soft to palpation, nontender, No hepatosplenomegaly present, no masses and Other GI palpation findings present (Abdomen is grossly obese and protuberant) Auscultation: normal bowel sounds Back/Spine/Pelvis Thoracic/Lumbar Spine: thoracic and lumbar spine normal to inspection Skin General skin exam: no rashes or lesions noted Neuro General: patient oriented x3 and no focal motor deficits Cranial nerves: Yes CN's II-XII intact bilaterally Extrem General: Yes normal to inspection, Yes no clubbing, cyanosis or edema and Yes no calf tenderness Psych Appearance: grossly normal and well kempt Speech and movement: Normal speech and movement present Results Reviewed Results Reviewed: COMPLIANCE REPORT FOR THE LAST 30 NIGHTS IS REVIEWED . HE USED 27/30 NIGHTS, 90%. AVERAGE USE IT PER. NIGHT 5 HOURS 50 MINUTES . THERE IS NO SIGNIFICANT AIR LEAK RESIDUAL AHI 0.4 Assessment & Plan Assessment & Plan (1) Morbid obesity: Comment: BMI 45.6 (10/2021), 47.2 (11/2021), 44.6 (02/2022), 45.8 (06/17/22), 44.2 (07/11/22), 43.4 (11/20/22), 44.6 (06/02/2023 ) CURRENT BMI 48.3, SO HE HAS ACTUALLY GAINED SOME WEIGHT. . Code(s): E66.01 - Morbid (severe) obesity due to excess calories Category: Medical Plan: HAD A GOOD TALK WITH HIM ABOUT HIS WEIGHT. HE PROMISES THAT HE IS GOING TO START WALKING DAILY. HE HAS PROMISED THAT HE IS GOOD TO CUT DOWN SOME CALORIES. (2) Sleep apnea: Comment: KNOWN CASE OF OBSTRUCTIVE SLEEP APNEA. HE IS using CPAP therapy very regularly, except for some nights when he forgets to the mask on. Compliance is good. Code(s): G47.30 - Sleep apnea, unspecified Category: Medical Plan: HE IS COMMENDED FOR GOOD COMPLIANCE. ENCOURAGED TO KEEP ON USING THE CPAP EVERY NIGHT AT LEAST FOR 6 HOURS PER NIGHT. (3) Allergic rhinitis: Comment: Has mild intermittent nasal congestion secondary to allergic rhinitis, Code(s): J30.9 - Allergic rhinitis, unspecified Category: Medical Plan: OK TO USE FLONASE NASAL SPRAY P.R.N. Coding Level of Care Code Est Pt Level 3 (97985) Diagnoses Morbid obesity E66.01 Sleep apnea G47.30 Allergic rhinitis J30.9
[2023-12-01 11:27] VITALS: BP 140/82; PULSE 76; O2SAT 97; BMI 48.3
== END 2023-12-01 11:49 | disposition home or self-care (01) ==
PROVIDERS: PCP Family Medicine; Visit Provider Internal Medicine
DX: E66.01 Morbid (severe) obesity due to excess calories (principal); G47.30 Sleep apnea, unspecified; J30.9 Allergic rhinitis, unspecified
CPT/HCPCS: 99213

== ENCOUNTER → 2023-12-01 11:18 | Outpatient (BNVA) | payer OTHER, SELFPAY | PROVIDERS: PCP Family Medicine; Visit Provider Internal Medicine ==

== ENCOUNTER 2023-12-17 11:08 | Outpatient (AMB) | payer OTHER, SELFPAY ==
--- NOTE | 2023-12-17 11:10 | A.OFFVIS_ITS ---
Vital Signs 12/17/23 11:28 Height 5 ft 7 in Weight 306 lb 0.026 oz BMI 47.9 BP 140/67 H Blood Pressure Location Rt brachial Position Sitting Pulse 77 Intake Visit Reasons: 6 months follow up Intake Note: Patient returns in 6 months follow up of HEDRICK. CC: Pt states he gain a lot of weight back because he was taking care of his mother who on November last year. He states that he is getting back to work out and lose weight. Rating Officer Required: No Accompanied by: Self / Same As Patient Allergies cat dander [CATS] Allergy (Mild, Verified 12/17/23 11:35) SNEEZING, ITCHY EYES Seasonal Allergies Allergy (Mild, Verified 12/17/23 11:35) sneezing/runny nose HPI HPI 6 months follow up: Details: Assessment & Plan (1) HEDRICK (nonalcoholic steatohepatitis): Comment: Baseline Laboratory Tests 03/26/21 Plt Count 326 Estimated GFR > 60 Total Bilirubin 0.9 AST 39 H ALT 72 H Alkaline Phosphatase 63 01/25/22 Ferritin 271 H GGT 47 Alpha Fetoprotein 1.7 ANGELIA Screen NEGATIVE Anti-Mitochondrial Ab NEGATIVE Anti-Smooth Muscle Ab <20 Hepatitis A IgM Ab Nonreactive Hep Bs Antigen Negative Hep Bs Antibody NONREACTIVE Hep B Core Total Ab Nonreactive Hepatitis C Ab (EIA) Nonreactive HIV 1&2 Ab/P24 Ag 4thGn Nonreactive Ultrasound of the abdomen with elastography shows F-3 THE PATIENT IS MORBIDLY OBESE ULTRASOUND OF THE ABDOMEN WITH ELASTOGRAPHY 09/2021 (F1-F2) CURRENT LABS 09/12/2304/25/23 11:3511:35 Total Bilirubin 1.1 H AST 19 ALT 24 Alkaline Phosphatase 69 Alpha Fetoprotein 1.7 ULTRASOUND OF THE ABDOMEN 08/27/22 IMPRESSION: Fatty liver Code(s): K75.81 - Nonalcoholic steatohepatitis (HEDRICK) (2) Morbid obesity: Comment: BMI 45.6 (10/2021), 47.2 (11/2021), 44.6 (02/2022), 45.8 (06/17/22), 44.2 (07/11/22), 43.4 (11/20/22), 44.6 (06/02/2023 ) . Code(s): E66.01 - Morbid (severe) obesity due to excess calories Plan He was busy with his mother who become ill with renal failure and she . This put his diet off somewhat, which would be expected - he also could not exercise. We review the labs and his liver hads improved since we started. LIver stage seem stable at F1-F2. ROV 6 mos REVIEW OF ER NOTES 09/2023 *ADDENDUMWound culture + for staph aureus. Patient was 10/06 for seroma. Drained in ER. Started on cephalexin/doxycycline. Seen next dose in general surgery office where he was told to discontinue the antibiotics. Feels the area is improving but still has some tenderness, swelling at the site. No fever. Wound culture shows sensitivity to bactrim, clindamycin, levofloxacin. Will initiate bactrim BID x 7 days. Patient informed of results with recommendations to follow-up with general surgery outpatient. Addendum Dictated By: Tammy Ramos 10/11/23 LABS: Laboratory Tests 10/06/23 22:49 WBC 15.5 H Hgb 15.9 Hct 42.6 Plt Count 333 Estimated GFR > 60 Total Bilirubin 0.5 AST 17 ALT 22 Alkaline Phosphatase 87 TODAY'S VISIT He was seen in the ER for severe cellulitis of the leg in September and that explains his leukocytosis. He has been dealing with irritation/anxiety and being overly snarky and today is the 1 year anniversary of his mother's . He was on prozac in the past with good relief of sx. He had a therapist, but he had 3 visits and she ghosted him. He will call to see if he can get another therapist. He will continue to follow this with Dr. Echevarria for titration of the prozac. He has gained some weight but he is getting back to diet and exercise. ROV 6 mos. 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 Brother No problems noted. Sister No problems noted. 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 Current occupational exposures/hazards: No Cognitive needs: No Hearing needs: No Vision needs: No Review of Systems Const Denies fatigue, Denies fever(s), Denies night sweats, Denies poor appetite and Denies weight loss ENT Reports Normal hearing present, Denies dental pain, Denies dysphagia, Denies hearing loss, Denies mouth pain, Denies odynophagia, Denies throat swelling, Denies tongue swelling and Reports other (Dentition adequate) Card Reports no additional complaints Resp Reports no additional complaints GI Details: Denies abdominal pain, Denies melena, Denies bloating, Denies hematochezia, Denies constipation, Denies GI cramping, Denies dysphagia, Denies excessive flatus, Denies early satiety, Denies heartburn, Denies diarrhea, Denies nausea, Denies odynophagia, Denies vomiting and Denies hematemesis Skin/Breast Denies pruritus, Denies lesions, Denies rash and Denies jaundice Neuro Reports Normal hearing present and Denies Abnormal speech present Psych Reports anxiety and Reports irritability Endo Denies fatigue Aller/Immun Denies throat swelling and Denies tongue swelling Physical Exam Vital Signs: Last Vital Signs Pulse 77 12/17/23 11:28 BP 140/67 H 12/17/23 11:28 BMI result Body Mass Index 47.9 Const General: cooperative, no acute distress, well developed and well groomed Nutritional Appearance: well nourished and obese Orientation/consciousness: oriented to person, oriented to place and oriented to time Limitations: No language barrier HEENT Head: Yes normocephalic and Yes atraumatic Eyes General: appearance normal, both eyes and all related structures Pupils: Equal, round and reactive pupils present Neck Neck: Yes normal visual inspection and Yes no lymphadenopathy Thyroid: Thyroid normal Resp Effort & Inspection: normal respiratory effort and able to speak in complete sentences Auscultation: clear to auscultation bilaterally Cardio Rate: regular rate Rhythm: regular rhythm Heart sounds: Normal, physiologic split S2 sound present Peripheral pulses: radial pulses present and posterior tibial pulses present GI Inspection: No distended, No Abdominal panniculus present and Yes obesity Palpation (GI): Soft to palpation, nontender, no guarding, not rigid and No hepatosplenomegaly present Percussion: Yes normal to percussion Auscultation: normal bowel sounds Rectal Exam - Male: Yes deferred Skin General skin exam: no rashes or lesions noted, turgor normal, skin not dry, no jaundice, No spider nevi and no striae Rashes: no rashes Nails: normal Neuro General: oriented to person, oriented to place and oriented to time Cranial nerves: Yes Equal, round and reactive pupils present and Yes Normal hearing present Speech: No Abnormal speech present Extrem General: Yes normal to inspection, No clubbing, No cyanosis and No edema Psych Appearance: grossly normal and well kempt Mental Status: mental status grossly normal Speech and movement: Normal speech and movement present Affect: normal affect Attitude: cooperative Thought process: Normal thought process present and not confabulating Thought content: Normal thought content present Insight: Fair insight present (Psych) Judgement: Fair judgement present (Psych) Assessment & Plan Assessment & Plan (1) HEDRICK (nonalcoholic steatohepatitis): Comment: Baseline Laboratory Tests 03/26/21 Plt Count 326 Estimated GFR > 60 Total Bilirubin 0.9 AST 39 H ALT 72 H Alkaline Phosphatase 63 01/25/22 Ferritin 271 H GGT 47 Alpha Fetoprotein 1.7 ANGELIA Screen NEGATIVE Anti-Mitochondrial Ab NEGATIVE Anti-Smooth Muscle Ab <20 Hepatitis A IgM Ab Nonreactive Hep Bs Antigen Negative Hep Bs Antibody NONREACTIVE Hep B Core Total Ab Nonreactive Hepatitis C Ab (EIA) Nonreactive HIV 1&2 Ab/P24 Ag 4thGn Nonreactive Ultrasound of the abdomen with elastography shows F-3 THE PATIENT IS MORBIDLY OBESE ULTRASOUND OF THE ABDOMEN WITH ELASTOGRAPHY 09/2021 (F1-F2) CURRENT LABS 10/06/23 22:49 WBC 15.5 H Hgb 15.9 Hct 42.6 Plt Count 333 Estimated GFR > 60 Total Bilirubin 0.5 AST 17 ALT 22 Alkaline Phosphatase 87 ULTRASOUND OF THE ABDOMEN 08/27/22 IMPRESSION: Fatty liver Code(s): K75.81 - Nonalcoholic steatohepatitis (HEDRICK) Category: Medical (2) Elevated fasting blood sugar: Code(s): R73.01 - Impaired fasting glucose Category: Medical (3) Morbid obesity with BMI of 50.0-59.9, adult: Code(s): E66.01 - Morbid (severe) obesity due to excess calories; Z68.43 - Body mass index [BMI] 50.0-59.9, adult Category: Medical (4) Anxiety: Code(s): F41.9 - Anxiety disorder, unspecified Category: Medical Plan He was seen in the ER for severe cellulitis of the leg in September and that explains his leukocytosis. He has been dealing with irritation/anxiety and being overly snarky and today is the 1 year anniversary of his mother's . He was on prozac in the past with good relief of sx. He had a therapist, but he had 3 visits and she ghosted him. He will call to see if he can get another therapist. He will continue to follow this with Dr. Echevarria for titration of the prozac. He has gained some weight but he is getting back to diet and exercise. ROV 6 mos. Orders: Orders Comprehensive Met. Panel Today E66.01 - Morbid (severe) obesity due to excess calories, K75.81 - Nonalcoholic steatohepatitis (HEDRICK), R73.01 - Impaired fasting glucose, Z68.43 - Body mass index [BMI] 50.0-59.9, adult Alpha Fetoprotein Today E66.01 - Morbid (severe) obesity due to excess calories, K75.81 - Nonalcoholic steatohepatitis (HEDRICK), R73.01 - Impaired fasting glucose, Z68.43 - Body mass index [BMI] 50.0-59.9, adult US abdomen complete Today E66.01 - Morbid (severe) obesity due to excess calories, K75.81 - Nonalcoholic steatohepatitis (HEDRICK), R73.01 - Impaired fasting glucose, Z68.43 - Body mass index [BMI] 50.0-59.9, adult Complete Blood Count Auto Diff Today E66.01 - Morbid (severe) obesity due to excess calories, K75.81 - Nonalcoholic steatohepatitis (HEDRICK), R73.01 - Impaired fasting glucose, Z68.43 - Body mass index [BMI] 50.0-59.9, adult Medications: New fluoxetine 20 mg PO DAILY 30 caps 3RF F41.9 - Anxiety disorder, unspecified Coding Level of Care Code Est Pt Level 4 (57462) Diagnoses HEDRICK (nonalcoholic steatohepatitis) K75.81 Elevated fasting blood sugar R73.01 Morbid obesity with BMI of 50.0-59.9, adult E66.01; Z68.43 Anxiety F41.9 Time Spent (min) 34 Comment discussing his mood problems/situational grief
[2023-12-17 11:28] VITALS: BP 140/67; PULSE 77; BMI 47.9
== END 2023-12-17 12:04 | disposition home or self-care (01) ==
PROVIDERS: PCP Family Medicine; Visit Provider Nurse Practitioner
DX: K75.81 Nonalcoholic steatohepatitis (NASH) (principal); R73.01 Impaired fasting glucose; E66.01 Morbid (severe) obesity due to excess calories; Z68.43 Body mass index [BMI] 50.0-59.9, adult; F41.9 Anxiety disorder, unspecified
CPT/HCPCS: 99214

== ENCOUNTER → 2023-12-17 11:08 | Outpatient (BNVA) | payer OTHER, SELFPAY | PROVIDERS: PCP Family Medicine; Visit Provider Nurse Practitioner ==

== ENCOUNTER 2023-12-30 09:55 | Outpatient (REF) | payer OTHER, SELFPAY ==
--- NOTE | ~2023-12-30 | US_ITS ---
EXAMINATION: US ABDOMEN COMPLETE CLINICAL INFORMATION: Nonalcoholic steatohepatitis (HEDRICK). COMPARISON: Ultrasound abdomen 02/27/2023 and 08/23/2022. TECHNIQUE: Real-time imaging of the abdominal viscera. FINDINGS: PANCREAS: Normal. ABDOMINAL AORTA: The proximal, mid, and distal segments are normal in caliber. INFERIOR VENA CAVA: Visualized portions are normal. LIVER: The liver is enlarged measuring about 19 cm in greatest length with increased echogenicity consistent with hepatic steatosis. The liver contour is normal. No focal hepatic lesion. There is no intrahepatic biliary duct dilatation seen. GALLBLADDER: The gallbladder is physiologically distended without evidence of stones, sludge, polyps, wall thickening or pericholecystic fluid. COMMON BILE DUCT: Normal in caliber measuring 0.58 cm in diameter. RIGHT KIDNEY: No hydronephrosis. No renal calculi or focal parenchymal lesions. The kidney measures 11.5 cm in maximum dimension. LEFT KIDNEY: No hydronephrosis. No renal calculi or focal parenchymal lesions. The kidney measures 12.6 cm in maximum dimension. SPLEEN: Normal. The spleen measures 11.5 cm in maximum dimension. FREE FLUID: None. US/US abdomen complete IMPRESSION: Enlarged fatty liver. Similar findings have been seen on the prior studies. Electronically signed by: Clarence Doty MD 01/07/2024 02:10 PM EDT
[2023-12-30 13:11] LABS: MANUAL DIFF FLAG NO
[2023-12-30 13:21] LABS: Basophils Absolute Auto 0.1 X10*3/uL (0.0-0.2); Basophils Percent Auto 0.9 % (0-2); Eosinophils Absolute Auto 0.3 X10*3/uL (0.0-0.4); Eosinophils Percent Auto 4.4 % (0-4); Hematocrit 43.5 % (42.0-52.0); Hemoglobin 15.6 g/dl (14.0-18.0); Imm Gran Abs Auto 0.01 X10*3/uL (0.00-0.03); Imm Gran Pct Auto 0.2 % (0.0-0.4); Lymphocytes Absolute Auto 2.1 X10*3/uL (1.2-4.9); Lymphocytes Percent Auto 30.8 % (20-40); Mean Corpuscular HGB Conc 35.9 g/dl (31.0-36.0); Mean Corpuscular Volume 86.5 fL (80.0-98.0); Mean Platelet Volume 10.9 fL (9.4-12.4); Monocytes Absolute Auto 0.6 X10*3/uL (0.1-1.2); Monocytes Percent Auto 8.7 % (2-11); Neutrophils Absolute Auto 3.7 x10*3/uL (2.0-8.3); Platelet Count 292 X10*3/uL (160-400); Red Blood Count 5.03 X10*6/uL (4.60-5.80); Red Cell Distribution Width 11.7 % (11.0-16.0); White Blood Count 6.7 X10*3/uL (4.8-10.8)
[2023-12-30 13:33] LABS: Alanine Aminotransferase 24 U/L (0-40); Albumin Level 4.4 g/dL (3.5-5.0); Alkaline Phosphatase 65 U/L (39-117); Anion Gap 12 (12-20); Aspartate Amino Transferase 18 U/L (5-37); Bilirubin Total 0.8 mg/dL (0.0-1.0); Blood Urea Nitrogen 16 mg/dL (9-16); Calcium 9.1 mg/dL (8.4-10.2); Carbon Dioxide 25 mmol/L (22-29); Chloride 106 mmol/L (96-108); Estimated Glomerular Filt Rate > 60; Glucose Random 98 mg/dL (60-115); Sodium 139 mmol/L (135-145); Total Protein 7.5 g/dL (6.5-8.0)
[2023-12-30 13:40] LABS: Alanine Aminotransferase 24 U/L (0-40); Albumin Level 4.4 g/dL (3.5-5.0); Alkaline Phosphatase 66 U/L (39-117); Anion Gap 11 (12-20); Aspartate Amino Transferase 19 U/L (5-37); Bilirubin Total 0.8 mg/dL (0.0-1.0); Blood Urea Nitrogen 16 mg/dL (9-16); Calcium 9.2 mg/dL (8.4-10.2); Carbon Dioxide 25 mmol/L (22-29); Chloride 106 mmol/L (96-108); Cholesterol 149 mg/dL (<200); Estimated Glomerular Filt Rate > 60; Glucose Fasting 99 mg/dL (60-99); HDL Cholesterol 37 mg/dL (>40); LDL Cholesterol Calculated 88 mg/dL (<100); Sodium 138 mmol/L (135-145); Total Protein 7.5 g/dL (6.5-8.0); Triglycerides 121 mg/dL (<150)
[2023-12-30 13:45] LABS: TSH reflex Free T4 1.11 uIU/mL (0.32-4.0)
[2023-12-31 13:13] LABS: Alpha Fetoprotein 1.2 ng/mL (<6.1)
== END 2023-12-30 09:56 | disposition home or self-care (01) ==
LOC: HO.HMGCX 09:55
PROVIDERS: PCP Family Medicine; Visit Provider Nurse Practitioner
DX: K75.81 Nonalcoholic steatohepatitis (NASH) (principal); E66.01 Morbid (severe) obesity due to excess calories; Z68.43 Body mass index [BMI] 50.0-59.9, adult; R73.01 Impaired fasting glucose; Z12.5 Encounter for screening for malignant neoplasm of prostate; Z00.00 Encounter for general adult medical examination without abnormal findings
CPT/HCPCS: 36415; 76700; 80053; 80061; 82105; 84153; 84443; 85025

== ENCOUNTER 2024-01-15 14:30 | Outpatient (RCR) | payer OTHER, SELFPAY ==
--- NOTE | 2023-12-15 10:05 | MHC.OT.EP ---
[address] [phone] Occupational Therapy Plan of Care Patient Name: Manas Michelle Date of Evaluation: 12/15/23 Diagnosis: Forearm Tendinitis Pain Location: Right dorsal forearm mild pain at baseline 8/10 at worse w/ active gripping Tenderness over right lateral epicondyle and dorsal wad Pain Score: 8 Pain Scale Used: Numeric (0 - 10) Aggravating Factors: Outreached gripping Alleviating Factors: Naproxen, Icy Hot, avoiding gripping Assessment: 48 yo male presents w/ right dorsal forearm pain for several weeks, reports pain w/ certain weight strengthening exercises. On assessment, he has good UE ROM, but right gross grasp is weak (40lb) and he has tenderness in lateral epicondyle and dorsal forearm. Symptoms consistent w/ lateral epicondylitis and he has started avoiding aggravating activities and lifting. He will benefit from cont'd therapy services w/ goal of self management w/ joint protection, activity modification and progression of strengthening. Frequency and Duration: The patient will be seen 2x/wk for 4 weeks Short Term Goals: Ind w/ Sanders stretches Good follow through w/ CFB wear w/ weight lifting Good follow through w/ weight lifting awareness and avoiding aggravting movements Ind w/ self massage Boiler Fitter Goals: Right gross grasp >80lb Pain free w/ moderate daily activities Good understanding of nighttime sleep position adaptations for ulnar nerve symptoms Ind w/ progression of strengthening and modifications Treatment Plan: Therapeutic Exercise Therapeutic Activity Home Exercise Program Splinting Patient Education ADL Training Ultrasound Iontophoresis MHP Soft Tissue Mobilization Kinesiotaping Consider nighttime orthosis Ionto w/ dex PRN Electronically Signed By: Jenelle Trent OTR/L Please Sign and return to therapist. Thank you once again for your referral.
--- NOTE | 2024-01-15 15:15 | MHC.OT.DC ---
[address] [phone] F: [phone] Occupational Therapy Discharge Note Patient Name: Manas Michelle Provider: Dr Adán Echevarria Diagnosis: Forearm Tendinitis Date of Evaluation: 12/15/23 Date of Discharge: 01/15/24 Treatments to Date: 6 Discharge Status: Achieved Goals Improved Function Independent with HEP Discharge Summary: Manas was referred to OT with right forearm pain, likely overuse w/ onset of weightlifting. He is now doing well and is pain free at most times. He has good follow through w/ HEP and joint protection, also good awareness of aggravating activities/movements. He has met all therapy goals and is Ind w/ self management, no further OT needed at this time. Electronically Signed By: AP Rubin/Annabelle CHT Reviewed/agree with student documentation: Therapist: Please Sign and return to therapist, thank you for your referral.
== END 2024-01-15 15:15 | disposition home or self-care (01) ==
LOC: HO.OT 14:30
PROVIDERS: PCP Family Medicine; Visit Provider Family Medicine
DX: M77.8 Other enthesopathies, not elsewhere classified (principal)
CPT/HCPCS: 97035; 97110; 97140; 97165

== ENCOUNTER 2024-06-22 09:25 | Outpatient (AMB) | payer OTHER, SELFPAY ==
[2024-06-22 09:33] VITALS: BP 130/90; PULSE 71; O2SAT 98; BMI 47.3
--- NOTE | 2024-06-22 09:33 | A.OFFVIS_ITS ---
Vital Signs 06/22/24 09:33 Height 5 ft 7 in Weight 302 lb 0.533 oz BMI 47.3 BP 130/90 H Blood Pressure Location Lt brachial Position Sitting Pulse 71 Pulse Source Pulse Oximeter Pulse Oximetry (%) 98 Oxygen Delivery Method Room Air Intake Visit Reasons: Obstructive sleep apnea Intake Note: pt is here for follow up of caio, School Treasurer Required: No Allergies cat dander [CATS] Allergy (Mild, Verified 06/22/24 09:49) SNEEZING, ITCHY EYES Seasonal Allergies Allergy (Mild, Verified 06/22/24 09:49) sneezing/runny nose Medication List - Last Reconciled 06/22/24 by Barrett Rangel MD CPAP (CPAP Machine/Device) DX: G47.30. Use daily As directed; Auto CPAP 6-16 cm H2O. Duration: 999days/Lifetime. Disp#1 fluoxetine 20 mg PO DAILY fluticasone propionate 50 mcg/actuation (Flonase Allergy Relief) 1 spray intranasal BID PRN hydroxyzine HCl 50 mg PO BEDTIME PRN 30 days naproxen 500 mg PO BID PRN 30 days sildenafil (Viagra) 50 mg PO DAILY PRN 30 days Do you need a note to return to daycare/school/sports/work: No HPI HPI Obstructive sleep apnea: Details: This 48 years old gentleman with morbid obesity and obstructive sleep apnea is here for his routine follow-up after 6 months. He uses his CPAP regularly every night with benefits. Sleeps good at least for 6 to 6-1/2 hours per night. He has no issue with the mask or CPAP device except for humidification system. The electronic message keeps on coming to him that his humidity system is not functioning. However he uses distilled water every night and it is almost completely gone by the morning. He denies daytime sleepiness. He is trying to join our do exercise on his own and has lost a few lb of weight in the last month. 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 Brother No problems noted. Sister No problems noted. 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 Current occupational exposures/hazards: No Cognitive needs: No Hearing needs: No Vision needs: No Review of Systems Const All systems reviewed & are unremarkable except as noted in HPI and below Eyes Reports no additional complaints ENT Reports no additional complaints and Reports nasal congestion (ALMOST EVERY NIGHT) Card Reports no additional complaints Resp Reports no additional complaints GI Reports no additional complaints Reports no additional complaints Musc Reports no additional complaints Skin/Breast Reports system reviewed and no additional complaints, except as documented Neuro Reports no additional complaints Psych Reports anxiety (Controlled with med) and Reports depression (Controlled with med) Endo Reports no additional complaints Physical Exam Vital Signs: Last Vital Signs Pulse 71 06/22/24 09:33 BP 130/90 H 06/22/24 09:33 Pulse Ox 98 06/22/24 09:33 Oxygen Delivery Method Room Air 06/22/24 09:33 BMI result Body Mass Index 47.3 Const General: comfortable, no acute distress, alert and awake Orientation/consciousness: patient oriented x3 HEENT Head: Yes normal to inspection General nose exam: No nasal polyps present, No nasal discharge present and Other nasal findings present (Has moderate nasal congestion) Face and sinus: Yes sinuses nontender Mouth: oropharynx normal Throat: Yes posterior oropharynx normal Eyes General: appearance normal, both eyes and all related structures Neck Neck: Yes normal visual inspection, Yes no lymphadenopathy, Yes trachea midline and Yes no JVD Thyroid: Thyroid normal Chest Chest palpation & inspection: normal inspection of the chest, normal palpation of entire chest wall and no tenderness Resp Effort & Inspection: normal respiratory effort Auscultation: clear to auscultation bilaterally Percussion: percussion normal Cardio Palpation: normal PMI Rate: regular rate Rhythm: regular rhythm Heart sounds: no gallops and no murmurs Peripheral pulses: Peripheral pulses 2+ throughout GI Palpation (GI): Soft to palpation, nontender, No hepatosplenomegaly present, no masses and Other GI palpation findings present (Abdomen is grossly obese and protuberant) Auscultation: normal bowel sounds Back/Spine/Pelvis Thoracic/Lumbar Spine: thoracic and lumbar spine normal to inspection Skin General skin exam: no rashes or lesions noted Neuro General: patient oriented x3 and no focal motor deficits Cranial nerves: Yes CN's II-XII intact bilaterally Extrem General: Yes normal to inspection, Yes no clubbing, cyanosis or edema and Yes no calf tenderness Psych Appearance: grossly normal and well kempt Speech and movement: Normal speech and movement present Results Reviewed Results Reviewed: Compliance report for the last 30 nights reviewed and he has used 28/30 nights, 93% of the nights. Pressure used 11-13 cm. .There is no significant Air leak residual AHI only 0.2 Assessment & Plan Assessment & Plan (1) Sleep apnea: Comment: KNOWN CASE OF OBSTRUCTIVE SLEEP APNEA. HE IS using CPAP therapy very regularly, and sleep good. Compliance is good. Code(s): G47.30 - Sleep apnea, unspecified Category: Medical Plan: Commended for good compliance and advised to keep on using the CPAP every night at least for 6-7 hours per night. (2) Allergic rhinitis: Comment: Has mild intermittent nasal congestion secondary to allergic rhinitis, mostly well controlled Code(s): J30.9 - Allergic rhinitis, unspecified Category: Medical Plan: Continue using Flonase-52 spray in each nostril daily (3) Morbid obesity with BMI of 50.0-59.9, adult: Comment: He has had gross or morbid obesity has lost a few lb of weight. Current BMI= 47.3 He is starting on exercise program, however has not been very consistent. Encouraged to do exercise on a regular basis. Eliminate carbohydrates from the diet as much as possible Code(s): E66.01 - Morbid (severe) obesity due to excess calories; Z68.43 - Body mass index [BMI] 50.0-59.9, adult Category: Medical Plan: Stressed that he needs to join a weight management program. Or restrict the intake of carbohydrates as much as possible. Do regular daily exercise at least for 30-60 minutes every day. Coding Level of Care Code Est Pt Level 3 (32772) Diagnoses Sleep apnea G47.30 Allergic rhinitis J30.9 Morbid obesity with BMI of 50.0-59.9, adult E66.01; Z68.43
== END 2024-06-22 09:51 | disposition home or self-care (01) ==
PROVIDERS: PCP Family Medicine; Visit Provider Internal Medicine
DX: G47.30 Sleep apnea, unspecified (principal); J30.9 Allergic rhinitis, unspecified; E66.01 Morbid (severe) obesity due to excess calories; Z68.43 Body mass index [BMI] 50.0-59.9, adult
CPT/HCPCS: 99213

== ENCOUNTER 2024-07-28 10:26 | Outpatient (REF) | payer OTHER, SELFPAY ==
[2024-07-28 14:04] LABS: Alanine Aminotransferase 25 U/L (0-40); Albumin Level 4.2 g/dL (3.5-5.0); Alkaline Phosphatase 71 U/L (39-117); Anion Gap 10 (12-20); Aspartate Amino Transferase 27 U/L (5-37); Bilirubin Total 0.6 mg/dL (0.0-1.0); Blood Urea Nitrogen 19 mg/dL (9-16); Calcium 8.8 mg/dL (8.4-10.2); Carbon Dioxide 25 mmol/L (22-29); Chloride 107 mmol/L (96-108); Cholesterol 159 mg/dL (<200); Estimated Glomerular Filt Rate > 60; Glucose Fasting 94 mg/dL (60-99); HDL Cholesterol 38 mg/dL (>40); LDL Cholesterol Calculated 100 mg/dL (<100); Potassium 3.9 mmol/L (3.3-5.1); Sodium 138 mmol/L (135-145); Total Protein 7.3 g/dL (6.5-8.0); Triglycerides 107 mg/dL (<150)
[2024-07-28 14:13] LABS: Prostate Specific Antigen Scr 1.97 ng/mL (<0.05-4.0)
[2024-07-28 14:23] LABS: TSH reflex Free T4 1.49 uIU/mL (0.32-4.0)
== END 2024-07-28 10:27 | disposition home or self-care (01) ==
LOC: HO.HMGCLDS 10:26
PROVIDERS: PCP Family Medicine; Visit Provider Family Medicine
DX: Z00.00 Encounter for general adult medical examination without abnormal findings (principal); Z12.5 Encounter for screening for malignant neoplasm of prostate; Z13.6 Encounter for screening for cardiovascular disorders
CPT/HCPCS: 36415; 80053; 80061; 84153; 84443

== ENCOUNTER 2024-07-30 09:04 | Outpatient (REF) | payer OTHER, SELFPAY ==
[2024-07-30 10:50] LABS: Creatinine Urine 228.09 mg/dL; Microalbum/Creatinine Ratio Ur 13.1 ug/mg cr (<30)
[2024-07-30 11:10] LABS: Appearance Urine Clear; Color Urine Yellow; Glucose Urine UA Negative (Negative); Leukocyte Esterase Urine Negative (Negative); Nitrite Urine Negative (Negative); PH 5.5 (5.0-9.0); Specific Gravity - Urine >= 1.030 (1.005-1.025); Urine Blood Negative (Negative); Urine Ketones Negative (Negative); Urine Protein Negative (Neg-Trace)
== END 2024-07-30 09:05 | disposition home or self-care (01) ==
LOC: HO.HMGCLDS 09:04
PROVIDERS: PCP Family Medicine; Visit Provider Family Medicine
DX: Z00.00 Encounter for general adult medical examination without abnormal findings (principal); I10 Essential (primary) hypertension
CPT/HCPCS: 81003; 82043; 82570

== ENCOUNTER 2024-08-02 09:06 | Outpatient (AMB) | payer OTHER, SELFPAY ==
--- NOTE | 2024-08-02 09:12 | A.OFFPC_ITS ---
Vital Signs 08/02/24 09:20 Height 5 ft 7 in Weight 301 lb 6 oz BMI 47.2 BP 110/70 Blood Pressure Location Rt brachial Position Sitting Respiration 14 Pulse 77 Pulse Source Pulse Oximeter Temp 98.9 F Temp Source Oral Pulse Oximetry (%) 97 Oxygen Delivery Method Room Air Intake Visit Reasons: CPE Intake Note: patient is scheduled for cpe Snow Ranger Required: No Allergies cat dander [CATS] Allergy (Mild, Verified 08/02/24 09:12) SNEEZING, ITCHY EYES Seasonal Allergies Allergy (Mild, Verified 08/02/24 09:12) sneezing/runny nose Medication List - Last Reconciled 08/02/24 by Adán Echevarria MD CPAP (CPAP Machine/Device) DX: G47.30. Use daily As directed; Auto CPAP 6-16 cm H2O. Duration: 999days/Lifetime. Disp#1 fluoxetine 20 mg PO DAILY fluticasone propionate 50 mcg/actuation (Flonase Allergy Relief) 1 spray intranasal BID PRN hydroxyzine HCl 50 mg PO BEDTIME PRN 30 days naproxen 500 mg PO BID PRN 30 days sildenafil (Viagra) 50 mg PO DAILY PRN 30 days Tobacco use date assessed: 08/02/24 Dental Screening Dental Screen Date: 08/02/24 Did you have a dental visit in the last 12 months?: Yes Did you have a dental problem in the last 6 months where you did not have access to dental care?: No Was dental information given to patient?: No HPI CPE HPI Details 48 y/o male presents for a CPE with f/u labs and health maint. Labs drawn 07/28/24. Reviewed labs with pt. Triglycerides 107. TC 159. LDL 100. HDL low at 38. PSA 1.97. HPI Comments History of Present Illness Details Documentation assistance for Adán Echevarria MD, was provided by German Palacios,? Cigarette Catcher on 08/02/2024 at 9:27 AM EST. Mcdonough, Dr. Echevarria, have read, observed, and verified documentation. ?? 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 Brother No problems noted. Sister No problems noted. 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 1. Little interest or pleasure in doing things: not at all 2. Feeling down, depressed, or hopeless: not at all 3. Trouble falling or staying asleep, or sleeping too much: several days 4. Feeling tired or having little energy: not at all 5. Poor appetite or overeating: several days 6. Feeling bad about yourself - or that you are a failure or have let yourself or your family down: not at all 7. Trouble concentrating on things, such as reading the newspaper or watching television: several days 8. Moving or speaking so slowly that other people could have noticed. Or the opposite - being so fidgety or restless that you have been moving around a lot more than usual: not at all 9. Thoughts that you would be better off or of hurting yourself in some way: not at all Total score: 3 Depression Screening Interpretation: Negative Depression Screening Done: Yes 85108 - PHQ-9 Billing: Yes Source: Developed by Drs. Brendan Don, Shazia Zhu, Elgin Wright and colleagues, with an educational milton from [employer]. Thrive Questionnaire Date Thrive assessed: 08/02/24 I am a: Patient What is your living situation today?: I have a steady place to live Within the past 12 months, did the food you bought not last and you didn't have the money to get more?: Never true Within the past 12 months, did you worry whether your food would run out before you got money to buy more?: Never true Do you have trouble paying for medicines?: No Do you have trouble getting transportation to medical appointments?: No Do you have trouble paying your heating and electricity bill?: No Do you have trouble taking care of your child, family member or friend?: No Do you have trouble with day-to-day activities such as bathing, preparing meals, shopping, managing finances, etc.?: No Are you currently unemployed and looking for a job?: No Are you interested in more education?: No Please select the resources that you would like help with: None Currently or been in a relationship where the following occur: No concerns reported THRIVE Score: 0 AUDIT C Alcohol Use Questionnaire (AUDIT-C) 1. How often do you have a drink containing alcohol?: Monthly or less 2. How many drinks containing alcohol do you have on a typical day when you are drinking?: 7 to 9 3. How often do you have six or more drinks on one occasion?: Less than monthly Total Score: 5 Score Reviewed/Action Taken: Yes YANELIS-7 AMB Questionnaire YANELIS-7 Date YANELIS - 7 assessed: 08/02/24 Feeling nervous, anxious, or on edge: 0 = Not at all Not being able to stop or control worryin = Not at all Worrying too much about different things: 0 = Not at all Trouble relaxin = Not at all Being so restless that it is hard to sit still: 0 = Not at all Becoming easily annoyed or irritable: 1 = Several days Feeling afraid as if something awful might happen: 1 = Several days Total YANELIS-7 score (0-4 normal; 5-9 mild; 10-14 moderate; 15-21 severe): 2 Source: Developed by Drs. Brendan Don, Shazia Zhu, Elgin Wright and colleagues, with an educational milton from [employer] YANELIS-7 Assessment Billing YANELIS-7 Assessment Tool: YANELIS-7 Assessment 29482 Review of Systems Const Denies chills, Denies fatigue, Denies fever(s), Denies headache(s) and Denies weakness Eyes Denies change in vision ENT Denies dizziness, Denies headache(s), Denies hearing loss, Denies nasal congestion, Denies sinus pain, Denies sinus pressure and Denies sore throat Card Denies chest pain, Denies lightheadedness, Denies dyspnea and Denies other (palpitations) Resp Denies cough, Denies dyspnea and Denies wheezing GI Denies abdominal pain, Denies melena, Denies hematochezia, Denies change in bowel habits, Denies dyspepsia and Denies nausea Denies hematuria and Denies dysuria Musc Denies abnormal gait, Denies myalgias, Denies arthralgias, Denies numbness and Denies tingling Skin/Breast Denies rash, Denies unusual bruising and Denies wounds Neuro Denies abnormal gait, Denies dizziness, Denies headache(s), Denies memory loss, Denies numbness, Denies Sensory deficit (Neuro), Denies tingling and Denies weakness Psych Denies anxiety, Denies depression and Denies memory loss Endo Denies cold intolerance, Denies fatigue, Denies heat intolerance, Denies polydipsia and Denies polyuria Román/Lymph Denies easy bleeding and Denies easy bruising Aller/Immun Denies wheezing Physical exam (Primary Care) Vital Signs: Last Vital Signs Temp 98.9 F 08/02/24 09:20 Pulse 77 08/02/24 09:20 Resp 14 08/02/24 09:20 BP 110/70 08/02/24 09:20 Pulse Ox 97 08/02/24 09:20 Oxygen Delivery Method Room Air 08/02/24 09:20 BMI result Body Mass Index 47.2 Tobacco/Smoking Status: Tobacco use Status Tobacco use date assessed 08/02/24 08/02/24 09:23 Patient Tobacco Use Status Former Tobacco user 08/02/24 09:23 e-Cigarette/Vaping Use Never Used 08/02/24 09:23 PHQ-9: PHQ-9 Score PHQ-9: Total score 3 08/02/24 09:26 Depression Screening Interpretation: Negative Thrive Assessment: Date of Thrive Assessment Date Thrive assessed 08/02/24 08/02/24 09:23 Currently or been in a relationship where the following occur: No concerns reported Const General: no acute distress, well developed, alert and awake Nutritional Appearance: well nourished and obese morbidly obese Orientation/consciousness: patient oriented x3 [facility] Head: Yes normocephalic and Yes atraumatic Ears: hearing grossly normal bilaterally and TM's normal bilaterally General nose exam: Normal external nose present and Normal nares present Mouth: Normal oral and palatal mucosa present and moist mucous membranes Teeth and gingiva: dentition normal Throat: Yes posterior oropharynx normal Eyes General: appearance normal, both eyes and all related structures Pupils: Equal, round and reactive pupils present and Pupil accommodation reflex normal EOM: EOMs intact bilaterally Neck Neck: Yes normal visual inspection, Yes no lymphadenopathy and Yes trachea midline Thyroid: Thyroid normal Carotids: no bruits Lymphatic: no lymphadenopathy noted Chest Chest palpation & inspection: normal inspection of the chest Resp Effort & Inspection: normal respiratory effort Auscultation: clear to auscultation bilaterally Cardio Rate: regular rate Rhythm: regular rhythm Heart sounds: S1 normal heart sound present, S2 normal heart sound present, no gallops, no murmurs and no rubs Bruits: no abdominal aortic bruits and no carotid bruits GI Palpation (GI): No Abdominal aortic bruit present, Soft to palpation, nontender, No hepatosplenomegaly present and No Rebound tenderness present Auscultation: normal bowel sounds General: Yes no CVA tenderness Back/Spine/Pelvis Back: no CVA tenderness Cervical Spine: cervical ROM normal and No Cervical spine tenderness Thoracic/Lumbar Spine: thoraco-lumbar ROM normal, No pain with thoraco-lumbar ROM, No thoracic spinal tenderness and No lumbar spinal tenderness Skin Lesions: no lesions Rashes: no rashes Trauma: no lacerations or abrasions Wounds: no wounds Nails: normal Neuro General: patient oriented x3 Cranial nerves: Yes Equal, round and reactive pupils present Cognition (Neuro): normal cognition Gait exam (Neuro): Normal gait present Motor exam (neuro): 5/5 motor strength present throughout Sensory Exam: No Sensory deficit (Neuro) Deep tendon reflexes (DTR's): Right patellar reflex intensity grade: 2+ and Left patellar reflex intensity grade: 2+ Extrem General: Yes normal to inspection and No edema Psych Appearance: grossly normal Affect: normal affect Attitude: cooperative Thought process: Normal thought process present Coding Level of Care Code Est Pt Level 3 (94222) Est Pt Prev Care 40-64y(53065) Diagnoses Adult general medical exam Z00.00 Low HDL (under 40) E78.6 Allergic rhinitis J30.9 Morbid obesity E66.01 Screening for prostate cancer Z12.5 Screening for colon cancer Z12.11 Additional Codes YANELIS-7 Assessment Billing - YANELIS-7 Assessment Tool: YANELIS-7 Assessment 96065 ([id number]) PHQ-9 - 44321 - PHQ-9 Billing: Yes ([id number]) Assessment & Plan Assessment & Plan (1) Adult general medical exam: Code(s): Z00.00 - Encounter for general adult medical examination without abnormal findings Category: Medical Plan: 48-year-old?male?presents?for?complete?physical?exam Encouraged?healthy?diet?with?active?lifestyle?and?plenty?of?exercise (2) Low HDL (under 40): Code(s): E78.6 - Lipoprotein deficiency Category: Medical Plan: Mildly?low?HDL. LDL?cholesterol?borderline?at?100 Encouraged?exercise?and?weight?loss (3) Allergic rhinitis: Comment: Has mild intermittent nasal congestion secondary to allergic rhinitis, mostly well controlled Code(s): J30.9 - Allergic rhinitis, unspecified Category: Medical Plan: Use?Flonase Use?nasal?saline?but?not?within?30?minutes?of?nasal?steroid Wean?off?of?Afrin Can?also?use?a?second-generation?antihistamine,?OTC (4) Morbid obesity: Code(s): E66.01 - Morbid (severe) obesity due to excess calories Category: Medical Plan: Encouraged?exercise?and?weight?loss (5) Screening for prostate cancer: Code(s): Z12.5 - Encounter for screening for malignant neoplasm of prostate Category: Medical Plan: PSA?was?within?normal?limits (6) Screening for colon cancer: Code(s): Z12.11 - Encounter for screening for malignant neoplasm of colon Category: Medical Plan: Patient?had?Cologuard?test.??I?do?not?have?the?results?yet?but?patient?reports?t hat?he?received?a?letter?that?his?testing?was?negative. Will?wait?report
[2024-08-02 09:20] VITALS: BP 110/70; PULSE 77; RESP 14; TEMP 37.2; O2SAT 97; BMI 47.2
== END 2024-08-02 09:47 | disposition home or self-care (01) ==
LOC: HO.HMCFM 09:06
PROVIDERS: PCP Family Medicine; Visit Provider Family Medicine
DX: Z00.00 Encounter for general adult medical examination without abnormal findings (principal); J30.9 Allergic rhinitis, unspecified; E66.01 Morbid (severe) obesity due to excess calories; Z68.42 Body mass index [BMI] 45.0-49.9, adult; E78.6 Lipoprotein deficiency; Z12.5 Encounter for screening for malignant neoplasm of prostate; Z12.11 Encounter for screening for malignant neoplasm of colon

== ENCOUNTER → 2024-08-02 09:06 | Outpatient (BNVA) | payer OTHER, SELFPAY | PROVIDERS: PCP Family Medicine; Visit Provider Family Medicine | DX: Z00.00 Encounter for general adult medical examination without abnormal findings (principal); E78.6 Lipoprotein deficiency; J30.9 Allergic rhinitis, unspecified; E66.01 Morbid (severe) obesity due to excess calories; Z68.42 Body mass index [BMI] 45.0-49.9, adult | CPT/HCPCS: 96127 ==

== ENCOUNTER 2024-11-24 09:05 | Outpatient (AMB) | payer OTHER, SELFPAY ==
[2024-11-24 09:08] VITALS: BP 120/73; PULSE 74; TEMP 36.5; O2SAT 98; BMI 45.6
--- NOTE | 2024-11-24 09:08 | MHC.OFFWIV ---
Intake Vital Signs 11/24/24 09:08 Height 5 ft 7 in Weight 291 lb 2 oz BMI 45.6 BP 120/73 Blood Pressure Location Rt brachial Position Sitting Pulse 74 Pulse Source Pulse Oximeter Temp 97.7 F Temp Source Oral Pulse Oximetry (%) 98 Oxygen Delivery Method Room Air Intake Visit Reasons: EP Burn on LT ankle Patient Tobacco Use Status: Former Tobacco user Sound Effects Technician Required: No Allergies cat dander (CATS) Allergy (Mild, Verified 11/24/24 09:16) SNEEZING, ITCHY EYES Seasonal Allergies Allergy (Mild, Verified 11/24/24 09:16) sneezing/runny nose Do you need a note to return to daycare/school/sports/work: No HPI HPI Comments History of Present Illness Details History of Present Illness - The patient is a 49-year-old male presenting with a rope burn on the leg. - The injury was caused by a dog leash wrapping around the leg, resulting in a burn and skin tear. - The patient experienced yellow blisters immediately after the injury. - The blisters popped and then it was left with an open wound on the left ankle. - He has been cleaning it and using OTC hydrogel pads on the area. - He is UTD with his immunizations. - Pain management has been challenging, with initial treatments causing discomfort. - He has a constant burning sensation to the area. - He denies discharge, bleeding, redness, warmth, streaking, numbness, or tingling. Physical Exam General: Cooperative, healthy appearing, comfortable, no acute distress and well developed Respiratory: Normal respiratory effort and able to speak in complete sentences. Clear to auscultation bilaterally Cardiovascular: Regular rate and rhythm. Normal S1 and S2 Skin: Open superficial skin tear on the left inner lower ankle. No blisters noted. No erythema noted. No bleeding or discharge noted. Neuro: Sensation is intact. Extremities: FROM of the left ankle. No TTP of the medial or lateral malleolus on the left. Strength is 5/5 on the LE. Ambulates with steady gait. Patient was informed and verbally consented to the use of an ambient scribe for clinic note documentation during this visit. 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 Brother No problems noted. Sister No problems noted. 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 Current occupational exposures/hazards: No Cognitive needs: No Hearing needs: No Vision needs: No Review of Systems Const All systems reviewed & are unremarkable except as noted in HPI and below Physical Exam Vital Signs: Last Vital Signs Temp 97.7 F 11/24/24 09:08 Pulse 74 11/24/24 09:08 BP 120/73 11/24/24 09:08 Pulse Ox 98 11/24/24 09:08 Oxygen Delivery Method Room Air 11/24/24 09:08 BMI result Body Mass Index 45.6 Assessment & Plan Assessment & Plan (1) Skin tear of lower leg without complication: Code(s): S81.819A - Laceration without foreign body, unspecified lower leg, initial encounter Qualifiers: Encounter type: initial encounter Laterality: left Qualified Code(s): S81.812A - Laceration without foreign body, left lower leg, initial encounter Plan Most likely skin tear from a rope burn Plan - Prescribe an antibiotic ointment for topical application to promote healing and prevent infection. - Initiate oral antibiotic therapy due to potential bacterial exposure from the dog leash. - Recommend keeping the wound clean, covered, and elevated to aid in recovery. Medications: New cephalexin 500 mg PO Q6H 28 caps 0RF mupirocin 2% 1 appl topical TID 22 grams 0RF Coding Level of Care Code Est Pt Level 3 (25287) Diagnoses Skin tear of left lower leg without complication, initial encounter S81.812A Encounter type: initial encounter Laterality: left
== END 2024-11-24 10:20 | disposition home or self-care (01) ==
PROVIDERS: PCP Family Medicine; Visit Provider Physician Assistant Medical
DX: S81.812A Laceration without foreign body, left lower leg, initial encounter (principal)

== ENCOUNTER 2024-12-28 11:59 | Outpatient (AMB) | payer OTHER, SELFPAY ==
--- NOTE | 2024-12-28 12:03 | A.OFFVIS_ITS ---
Vital Signs 12/28/24 12:08 Height 5 ft 7 in Weight 294 lb BMI 46.0 BP 139/62 Blood Pressure Location Lt brachial Position Sitting Pulse 82 Pulse Oximetry (%) 97 Oxygen Delivery Method Room Air Intake Visit Reasons: Follow up US and labs Intake Note: Patient follow up for US/lab results Patient denies any GI issues for today visit. Math Interventionist Required: No Accompanied by: Self / Same As Patient Allergies cat dander (CATS) Allergy (Mild, Verified 11/24/24 09:16) SNEEZING, ITCHY EYES Seasonal Allergies Allergy (Mild, Verified 11/24/24 09:16) sneezing/runny nose HPI HPI Follow up US and labs: Details: Assessment & Plan (1) HEDRICK (nonalcoholic steatohepatitis): Comment: Baseline Laboratory Tests 03/26/21 Plt Count 326 Estimated GFR > 60 Total Bilirubin 0.9 AST 39 H ALT 72 H Alkaline Phosphatase 63 01/25/22 Ferritin 271 H GGT 47 Alpha Fetoprotein 1.7 ANGELIA Screen NEGATIVE Anti-Mitochondrial Ab NEGATIVE Anti-Smooth Muscle Ab <20 Hepatitis A IgM Ab Nonreactive Hep Bs Antigen Negative Hep Bs Antibody NONREACTIVE Hep B Core Total Ab Nonreactive Hepatitis C Ab (EIA) Nonreactive HIV 1&2 Ab/P24 Ag 4thGn Nonreactive Ultrasound of the abdomen with elastography shows F-3 THE PATIENT IS MORBIDLY OBESE ULTRASOUND OF THE ABDOMEN WITH ELASTOGRAPHY 09/2021 (F1-F2) CURRENT LABS 10/06/23 22:49 WBC 15.5 H Hgb 15.9 Hct 42.6 Plt Count 333 Estimated GFR > 60 Total Bilirubin 0.5 AST 17 ALT 22 Alkaline Phosphatase 87 ULTRASOUND OF THE ABDOMEN 08/27/22 IMPRESSION: Fatty liver Code(s): K75.81 - Nonalcoholic steatohepatitis (HEDRICK) Category: Medical (2) Elevated fasting blood sugar: Code(s): R73.01 - Impaired fasting glucose Category: Medical (3) Morbid obesity with BMI of 50.0-59.9, adult: Code(s): E66.01 - Morbid (severe) obesity due to excess calories; Z68.43 - Body mass index [BMI] 50.0-59.9, adult Category: Medical (4) Anxiety: Code(s): F41.9 - Anxiety disorder, unspecified Category: Medical Plan He was seen in the ER for severe cellulitis of the leg in September and that explains his leukocytosis. He has been dealing with irritation/anxiety and being overly snarky and today is the 1 year anniversary of his mother's . He was on prozac in the past with good relief of sx. He had a therapist, but he had 3 visits and she ghosted him. He will call to see if he can get another therapist. He will continue to follow this with Dr. Echevarria for titration of the prozac. He has gained some weight but he is getting back to diet and exercise. ROV 6 mos. Orders: Orders Comprehensive Met. Panel Today E66.01 - Morbid (severe) obesity due to excess calories, K75.81 - Nonalcoholic steatohepatitis (HEDRICK), R73.01 - Impaired fasting glucose, Z68.43 - Body mass index [BMI] 50.0-59.9, adult Alpha Fetoprotein Today E66.01 - Morbid (severe) obesity due to excess calories, K75.81 - Nonalcoholic steatohepatitis (HEDRICK), R73.01 - Impaired fasting glucose, Z68.43 - Body mass index [BMI] 50.0-59.9, adult US abdomen complete Today E66.01 - Morbid (severe) obesity due to excess calories, K75.81 - Nonalcoholic steatohepatitis (HEDRICK), R73.01 - Impaired fasting glucose, Z68.43 - Body mass index [BMI] 50.0-59.9, adult Complete Blood Count Auto Diff Today E66.01 - Morbid (severe) obesity due to excess calories, K75.81 - Nonalcoholic steatohepatitis (HEDRICK), R73.01 - Impaired fasting glucose, Z68.43 - Body mass index [BMI] 50.0-59.9, adult Medications: New fluoxetine 20 mg PO DAILY 30 caps 3RF F41.9 - Anxiety disorder, unspecified LABS: Laboratory Tests 12/30/23 12/30/23 07/28/24 10:24 10:29 10:34 WBC 6.7 Hgb 15.6 Hct 43.5 Plt Count 292 Estimated GFR > 60 Total Bilirubin 0.6 AST 19 27 ALT 24 25 Alkaline Phosphatase 66 71 TSH 1.49 ULTRASOUND OF THE ABDOMEN 12/30/2023 FINDINGS: PANCREAS: Normal. ABDOMINAL AORTA: The proximal, mid, and distal segments are normal in caliber. INFERIOR VENA CAVA: Visualized portions are normal. LIVER: The liver is enlarged measuring about 19 cm in greatest length with increased echogenicity consistent with hepatic steatosis. The liver contour is normal. No focal hepatic lesion. There is no intrahepatic biliary duct dilatation seen. GALLBLADDER: The gallbladder is physiologically distended without evidence of stones, sludge, polyps, wall thickening or pericholecystic fluid. COMMON BILE DUCT: Normal in caliber measuring 0.58 cm in diameter. RIGHT KIDNEY: No hydronephrosis. No renal calculi or focal parenchymal lesions. The kidney measures 11.5 cm in maximum dimension. LEFT KIDNEY: No hydronephrosis. No renal calculi or focal parenchymal lesions. The kidney measures 12.6 cm in maximum dimension. SPLEEN: Normal. The spleen measures 11.5 cm in maximum dimension. FREE FLUID: None. US/US abdomen complete IMPRESSION: Enlarged fatty liver. Similar findings have been seen on the prior studies. 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 Brother No problems noted. Sister No problems noted. 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 Current occupational exposures/hazards: No Cognitive needs: No Hearing needs: No Vision needs: No Review of Systems Const Denies fatigue, Denies fever(s), Denies night sweats, Denies poor appetite, Reports weight gain and Denies weight loss ENT Reports Normal hearing present, Denies dental pain, Denies dysphagia, Denies hearing loss, Denies mouth pain, Denies odynophagia, Denies throat swelling, Denies tongue swelling and Reports other (Dentition adequate) Card Reports no additional complaints Resp Reports no additional complaints GI Details: Denies abdominal pain, Denies melena, Denies bloating, Denies hematochezia, Denies constipation, Denies GI cramping, Denies dysphagia, Denies excessive flatus, Denies early satiety, Denies heartburn, Denies diarrhea, Denies nausea, Denies odynophagia, Denies vomiting and Denies hematemesis Skin/Breast Denies pruritus, Denies lesions, Denies rash and Denies jaundice Neuro Reports Normal hearing present and Denies Abnormal speech present Endo Denies fatigue Aller/Immun Denies throat swelling and Denies tongue swelling Physical Exam Vital Signs: Last Vital Signs Pulse 82 12/28/24 12:08 BP 139/62 12/28/24 12:08 Pulse Ox 97 12/28/24 12:08 Oxygen Delivery Method Room Air 12/28/24 12:08 BMI result Body Mass Index 46.0 Const General: cooperative, no acute distress, well developed and well groomed Nutritional Appearance: well nourished and obese morbidly obese Orientation/consciousness: oriented to person, oriented to place and oriented to time Limitations: No language barrier HEENT Head: Yes normocephalic and Yes atraumatic Eyes General: appearance normal, both eyes and all related structures Pupils: Equal, round and reactive pupils present Neck Neck: Yes normal visual inspection and Yes no lymphadenopathy Thyroid: Thyroid normal Resp Effort & Inspection: normal respiratory effort and able to speak in complete sentences Auscultation: clear to auscultation bilaterally Cardio Rate: regular rate Rhythm: regular rhythm Heart sounds: Normal, physiologic split S2 sound present Peripheral pulses: radial pulses present and posterior tibial pulses present GI Inspection: No distended, No Abdominal panniculus present and Yes obesity Palpation (GI): Soft to palpation, nontender, no guarding, not rigid and No hepatosplenomegaly present Percussion: Yes normal to percussion Auscultation: normal bowel sounds Rectal Exam - Male: Yes deferred Skin General skin exam: no rashes or lesions noted, turgor normal, skin not dry, no jaundice, No spider nevi and no striae Rashes: no rashes Nails: normal Neuro General: oriented to person, oriented to place and oriented to time Cranial nerves: Yes Equal, round and reactive pupils present and Yes Normal hearing present Speech: No Abnormal speech present Extrem General: Yes normal to inspection, No clubbing, No cyanosis and No edema Psych Appearance: grossly normal and well kempt Mental Status: mental status grossly normal Speech and movement: Normal speech and movement present Affect: normal affect Attitude: cooperative Thought process: Normal thought process present and not confabulating Thought content: Normal thought content present Insight: Good insight present (Psych) Judgement: Good judgement present (Psych) Results Reviewed Results Reviewed: Laboratory Tests 12/30/23 12/30/23 07/28/24 10:24 10:29 10:34 WBC 6.7 Hgb 15.6 Hct 43.5 Plt Count 292 Estimated GFR > 60 Total Bilirubin 0.6 AST 19 27 ALT 24 25 Alkaline Phosphatase 66 71 TSH 1.49 ULTRASOUND OF THE ABDOMEN 12/30/2023 FINDINGS: PANCREAS: Normal. ABDOMINAL AORTA: The proximal, mid, and distal segments are normal in caliber. INFERIOR VENA CAVA: Visualized portions are normal. LIVER: The liver is enlarged measuring about 19 cm in greatest length with increased echogenicity consistent with hepatic steatosis. The liver contour is normal. No focal hepatic lesion. There is no intrahepatic biliary duct dilatation seen. GALLBLADDER: The gallbladder is physiologically distended without evidence of stones, sludge, polyps, wall thickening or pericholecystic fluid. COMMON BILE DUCT: Normal in caliber measuring 0.58 cm in diameter. RIGHT KIDNEY: No hydronephrosis. No renal calculi or focal parenchymal lesions. The kidney measures 11.5 cm in maximum dimension. LEFT KIDNEY: No hydronephrosis. No renal calculi or focal parenchymal lesions. The kidney measures 12.6 cm in maximum dimension. SPLEEN: Normal. The spleen measures 11.5 cm in maximum dimension. FREE FLUID: None. US/US abdomen complete IMPRESSION: Enlarged fatty liver. Similar findings have been seen on the prior studies. Assessment & Plan Assessment & Plan (1) HEDRICK (nonalcoholic steatohepatitis): Comment: Baseline Laboratory Tests 03/26/21 Plt Count 326 Estimated GFR > 60 Total Bilirubin 0.9 AST 39 H ALT 72 H Alkaline Phosphatase 63 01/25/22 Ferritin 271 H GGT 47 Alpha Fetoprotein 1.7 ANGELIA Screen NEGATIVE Anti-Mitochondrial Ab NEGATIVE Anti-Smooth Muscle Ab <20 Hepatitis A IgM Ab Nonreactive Hep Bs Antigen Negative Hep Bs Antibody NONREACTIVE Hep B Core Total Ab Nonreactive Hepatitis C Ab (EIA) Nonreactive HIV 1&2 Ab/P24 Ag 4thGn Nonreactive Ultrasound of the abdomen with elastography shows F-3 THE PATIENT IS MORBIDLY OBESE ULTRASOUND OF THE ABDOMEN WITH ELASTOGRAPHY 09/2021 (F1-F2) 12/29/2408/01/2404 [id number]:[id number] Total Bilirubin 0.6 AST 19 27 ALT 24 25 Alkaline Phosphatase 66 71 TSH 1.49 ULTRASOUND OF THE ABDOMEN 12/30/2023 FINDINGS: PANCREAS: Normal. ABDOMINAL AORTA: The proximal, mid, and distal segments are normal in caliber. INFERIOR VENA CAVA: Visualized portions are normal. LIVER: The liver is enlarged measuring about 19 cm in greatest length with increased echogenicity consistent with hepatic steatosis. The liver contour is normal. No focal hepatic lesion. There is no intrahepatic biliary duct dilatation seen. GALLBLADDER: The gallbladder is physiologically distended without evidence of stones, sludge, polyps, wall thickening or pericholecystic fluid. COMMON BILE DUCT: Normal in caliber measuring 0.58 cm in diameter. RIGHT KIDNEY: No hydronephrosis. No renal calculi or focal parenchymal lesions. The kidney measures 11.5 cm in maximum dimension. LEFT KIDNEY: No hydronephrosis. No renal calculi or focal parenchymal lesions. The kidney measures 12.6 cm in maximum dimension. SPLEEN: Normal. The spleen measures 11.5 cm in maximum dimension. FREE FLUID: None. US/US abdomen complete IMPRESSION: Enlarged fatty liver. Similar findings have been seen on the prior studies. Code(s): K75.81 - Nonalcoholic steatohepatitis (HEDRICK) Category: Medical (2) Morbid obesity: Code(s): E66.01 - Morbid (severe) obesity due to excess calories Category: Medical Plan - The patient is a 49-year-old male presenting with concerns related to liver function monitoring. - Recent liver function tests indicate slight elevations compared to a year prior, where stability had been noted. - The patient acknowledges challenges in maintaining exercise and dietary regimes, resulting in weight gain. - Historical weight reached 360 pounds; however, recent weight is approximately 294 pounds today which is up about 4 lb from the last time I saw him. - we will get an ultrasound and continue to monitor him but he is encouraged to continue to exercise weight control. He just got a new dog so this will help encouraged him to walk and exercise. Return office visit in 6 months Orders: Orders US abdomen complete Today K75.81 - Nonalcoholic steatohepatitis (HEDRICK) Coding Level of Care Code Est Pt Level 3 (37322) Diagnoses HEDRICK (nonalcoholic steatohepatitis) K75.81 Morbid obesity E66.01
[2024-12-28 12:08] VITALS: BP 139/62; PULSE 82; O2SAT 97; BMI 46.0
== END 2024-12-28 16:00 | disposition home or self-care (01) ==
LOC: HO.HGI 11:59
PROVIDERS: PCP Family Medicine; Visit Provider Nurse Practitioner
DX: K75.81 Nonalcoholic steatohepatitis (NASH) (principal); E66.01 Morbid (severe) obesity due to excess calories
CPT/HCPCS: 99213

== ENCOUNTER 2025-03-01 10:31 | Outpatient (REF) | payer OTHER, SELFPAY ==
--- NOTE | ~2025-03-01 | US_ITS ---
CLINICAL HISTORY: K75.81 - Nonalcoholic steatohepatitis (HEDRICK) Ultrasound of the abdomen Comparison: US/SR - US ABDOMEN COMPLETE - 12/30/23 10:04 EDT US/IL/SR - US ABDOMEN LIMITED WITH LIVER ELASTOGRAPHY - 02/27/23 09:21 EST US/IL/SR - US ABDOMEN LIMITED - 08/23/22 11:38 EDT Findings: The liver is normal in size, measuring 16.5cm. Increased echogenicity without focal lesions. No intrahepatic biliary ductal dilatation. No cholelithiasis. No gallbladder wall thickening or pericholecystic fluid. Negative Shell's sign. The common bile duct is normal, measuring 0.4cm. Unremarkable limited evaluation of the pancreas. The right kidney is normal in echogenicity and size, measuring 11.6cm. No nephrolithiasis or hydronephrosis. The left kidney is normal echogenicity and size, measuring 12.3cm. No nephrolithiasis or hydronephrosis. The spleen is without focal lesions and normal in size, measuring 11.4cm. The aorta and IVC are unremarkable. No ascites. Impression: Hepatomegaly with hepatic steatosis. This document has been electronically signed by: Quyen Saavedra MD on 03/02/2025 23:00:30
== END 2025-03-01 10:32 | disposition home or self-care (01) ==
LOC: HO.HMGCX 10:31
PROVIDERS: PCP Family Medicine; Visit Provider Nurse Practitioner
DX: K75.81 Nonalcoholic steatohepatitis (NASH) (principal)
CPT/HCPCS: 76700

== ENCOUNTER → 2025-03-01 10:37 | Outpatient (BNV) | payer OTHER, SELFPAY | PROVIDERS: PCP Family Medicine; Visit Provider Radiology Diagnostic Radiology | DX: K76.0 Fatty (change of) liver, not elsewhere classified (principal); R16.0 Hepatomegaly, not elsewhere classified | CPT/HCPCS: 76700 ==